=== PATIENT | female | born 1950 | race Two or more races ===

== ENCOUNTER → 2022-11-09 | Outpatient (CLI) | payer OTHER ==
[2022-11-09 08:35] LABS: Basophils # (auto) 0 10 ^3/uL (0-0.2); Basophils % (auto) 0.6 % (0.0-2.0); Eosinophils # (auto) 0.2 10 ^3/uL (0-0.8); Eosinophils % (auto) 3.3 % (0.0-7.0); Hematocrit 39.3 % (36.0-46.0); Hemoglobin 12.9 g/dL (12.2-16.2); Lymphocytes # (auto) 1.8 10 ^3/uL (0.4-5.4); Lymphocytes % (auto) 26.2 % (10.0-50.0); Mean Corpuscular Hemoglobin 29.1 pg (28.0-32.0); Mean Corpuscular Hgb Conc. 32.8 g/dL (32.0-36.0); Mean Corpuscular Volume 88.8 fL (80.0-100.0); Monocytes # (auto) 0.6 10 ^3/uL (0-1.3); Monocytes % (auto) 8.1 % (0.0-12.0); Neutrophils # (auto) 4.3 10 ^3/uL (1.6-8.6); Neutrophils % (auto) 61.8 % (37.0-80.0); Red Blood Cells 4.43 10^6/uL (4.0-5.20); Red Cell Distribution Width 13.5 % (11.8-14.3); White Blood Cell 6.9 10^3/uL (4.4-10.8)
[2022-11-09 09:31] LABS: Albumin 3.6 g/dL (3.4-5.0); BUN/Creatinine Ratio 17.7; Bilirubin, Total 0.3 mg/dL (0.2-1.0); Calcium 8.8 mg/dL (8.5-10.1); Total Protein 7.3 g/dL (6.4-8.2); Urine Bacteria NONE SEEN /hpf (None Seen); Urine Blood Negative /uL (Negative); Urine Specific Gravity 1.019 (1.001-1.035); Urine WBC 221 /hpf (0 - 5)
== END | disposition home or self-care (01) ==
LOC: LAB 08:20
PROVIDERS: ATTEND Student in an Organized Health Care Education/Training Program
DX: I10 Essential (primary) hypertension (principal); E11.9 Type 2 diabetes mellitus without complications
CPT/HCPCS: 36415; 80053; 80061; 81001; 83036; 85025

== ENCOUNTER → 2023-01-31 | Outpatient (CLI) | payer OTHER ==
[2023-01-31 09:29] LABS: Urine Bacteria FEW /hpf (None Seen); Urine Blood Negative /uL (Negative); Urine Mucus FEW (None Seen); Urine WBC 16 /hpf (0 - 5)
[2023-01-31 09:35] LABS: Basophils # (auto) 0 10 ^3/uL (0-0.2); Basophils % (auto) 0.6 % (0.0-2.0); Eosinophils # (auto) 0.2 10 ^3/uL (0-0.8); Eosinophils % (auto) 2.6 % (0.0-7.0); Hematocrit 38.8 % (36.0-46.0); Hemoglobin 13.2 g/dL (12.2-16.2); Lymphocytes # (auto) 1.9 10 ^3/uL (0.4-5.4); Lymphocytes % (auto) 23.3 % (10.0-50.0); Mean Corpuscular Hemoglobin 29.6 pg (28.0-32.0); Mean Corpuscular Hgb Conc. 33.9 g/dL (32.0-36.0); Mean Corpuscular Volume 87.2 fL (80.0-100.0); Monocytes # (auto) 0.5 10 ^3/uL (0-1.3); Monocytes % (auto) 6.4 % (0.0-12.0); Neutrophils # (auto) 5.5 10 ^3/uL (1.6-8.6); Neutrophils % (auto) 67.1 % (37.0-80.0); Red Blood Cells 4.45 10^6/uL (4.0-5.20); Red Cell Distribution Width 13.1 % (11.8-14.3); White Blood Cell 8.2 10^3/uL (4.4-10.8)
[2023-01-31 10:06] LABS: Potassium 4.2 mmol/L (3.5-5.1)
[2023-01-31 10:12] LABS: Calcium 8.9 mg/dL (8.5-10.1)
== END | disposition home or self-care (01) ==
LOC: LAB 08:39
PROVIDERS: ATTEND Student in an Organized Health Care Education/Training Program
DX: I10 Essential (primary) hypertension (principal); E11.9 Type 2 diabetes mellitus without complications
CPT/HCPCS: 36415; 80048; 81001; 83036; 85025

== ENCOUNTER → 2023-05-14 | Outpatient (CLI) | payer OTHER ==
[2023-05-14 08:22] LABS: Basophils # (auto) 0.1 10 ^3/uL (0-0.2); Basophils % (auto) 0.7 % (0.0-2.0); Eosinophils # (auto) 0.2 10 ^3/uL (0-0.8); Eosinophils % (auto) 2.4 % (0.0-7.0); Hematocrit 42.9 % (36.0-46.0); Hemoglobin 14.1 g/dL (12.2-16.2); Lymphocytes # (auto) 1.6 10 ^3/uL (0.4-5.4); Mean Corpuscular Hemoglobin 28.9 pg (28.0-32.0); Mean Corpuscular Hgb Conc. 32.8 g/dL (32.0-36.0); Mean Corpuscular Volume 88.3 fL (80.0-100.0); Monocytes # (auto) 0.7 10 ^3/uL (0-1.3); Monocytes % (auto) 8.3 % (0.0-12.0); Neutrophils # (auto) 5.4 10 ^3/uL (1.6-8.6); Neutrophils % (auto) 68.6 % (37.0-80.0); Red Blood Cells 4.86 10^6/uL (4.0-5.20); Red Cell Distribution Width 13.6 % (11.8-14.3); White Blood Cell 7.8 10^3/uL (4.4-10.8)
[2023-05-14 08:33] LABS: Urine Bacteria NONE SEEN /hpf (None Seen); Urine Blood Negative /uL (Negative); Urine Clarity Clear (Clear); Urine Color Yellow (Yellow); Urine Protein, UAD Negative (Negative); Urine Specific Gravity 1.008 (1.001-1.035); Urine Urobilinogen Normal (Negative); Urine WBC 3 /hpf (0 - 5)
[2023-05-14 09:05] LABS: Albumin 3.7 g/dL (3.4-5.0); Calcium 9.3 mg/dL (8.5-10.1); Potassium 4.1 mmol/L (3.5-5.1)
[2023-05-14 09:08] LABS: BUN/Creatinine Ratio 7.6 (10.0-20.0); Bilirubin, Total 0.4 mg/dL (0.2-1.0); Total Protein 8.1 g/dL (6.4-8.2)
== END | disposition home or self-care (01) ==
LOC: LAB 08:05
PROVIDERS: ATTEND Student in an Organized Health Care Education/Training Program
DX: E11.9 Type 2 diabetes mellitus without complications (principal); I10 Essential (primary) hypertension
CPT/HCPCS: 36415; 80053; 81001; 83036; 85025

== ENCOUNTER → 2023-08-06 | Outpatient (CLI) | payer OTHER ==
[2023-08-06 08:33] LABS: Basophils # (auto) 0.1 10 ^3/uL (0-0.2); Eosinophils # (auto) 0.2 10 ^3/uL (0-0.8); Eosinophils % (auto) 2.9 % (0.0-7.0); Hematocrit 38.8 % (36.0-46.0); Hemoglobin 12.9 g/dL (12.2-16.2); Lymphocytes # (auto) 1.7 10 ^3/uL (0.4-5.4); Lymphocytes % (auto) 23.5 % (10.0-50.0); Mean Corpuscular Hemoglobin 29.1 pg (28.0-32.0); Mean Corpuscular Hgb Conc. 33.3 g/dL (32.0-36.0); Mean Corpuscular Volume 87.6 fL (80.0-100.0); Monocytes # (auto) 0.5 10 ^3/uL (0-1.3); Monocytes % (auto) 6.2 % (0.0-12.0); Neutrophils # (auto) 4.9 10 ^3/uL (1.6-8.6); Neutrophils % (auto) 66.4 % (37.0-80.0); Red Blood Cells 4.43 10^6/uL (4.0-5.20); Red Cell Distribution Width 13.4 % (11.8-14.3); White Blood Cell 7.3 10^3/uL (4.4-10.8)
[2023-08-06 09:19] LABS: Alanine Aminotransferase 83 U/L (7-40); Albumin 4.3 g/dL (3.2-4.8); Alkaline Phosphatase 61 U/L (46-116); Anion Gap 5 (5-15); Aspartate Aminotransferase 73 U/L (13-40); BUN/Creatinine Ratio 7.6 (10.0-20.0); Bilirubin, Total 0.3 mg/dL (0.2-1.0); Blood Urea Nitrogen 5 mg/dL (9-23); Calcium 9.2 mg/dL (8.5-10.1); Carbon Dioxide 30 mmol/L (20-30); Chloride 93 mmol/L (98-107); Cholesterol 117 mg/dL (< 200); Glucose 140 mg/dL (74-106); HDL Cholesterol 32 mg/dL (40-59); LDL Cholesterol 70 mg/dL (< 100); Potassium 4.4 mmol/L (3.5-5.1); Sodium 128 mmol/L (136-145); Triglycerides 149 mg/dL (< 150)
[2023-08-07 10:07] LABS: Urine Blood Negative /uL (Negative); Urine Clarity Clear (Clear); Urine Color Colorless (Yellow); Urine Protein, UAD Negative (Negative); Urine Specific Gravity 1.007 (1.001-1.035); Urine Urobilinogen Normal (Negative)
== END | disposition home or self-care (01) ==
LOC: LAB 08:17
DX: I10 Essential (primary) hypertension (principal); E11.9 Type 2 diabetes mellitus without complications; E78.5 Hyperlipidemia, unspecified
CPT/HCPCS: 36415; 80053; 80061; 81003; 82306; 83036; 84443; 85025

== ENCOUNTER → 2024-01-29 | Outpatient (CLI) | payer OTHER ==
[2024-01-29 09:31] LABS: Basophils # (auto) 0.1 10 ^3/uL (0-0.2); Basophils % (auto) 0.6 % (0.0-2.0); Eosinophils # (auto) 0.2 10 ^3/uL (0-0.8); Eosinophils % (auto) 2.4 % (0.0-7.0); Hematocrit 41.3 % (36.0-46.0); Hemoglobin 13.7 g/dL (12.2-16.2); Lymphocytes # (auto) 1.7 10 ^3/uL (0.4-5.4); Lymphocytes % (auto) 17.5 % (10.0-50.0); Mean Corpuscular Hemoglobin 29.1 pg (28.0-32.0); Mean Corpuscular Hgb Conc. 33.1 g/dL (32.0-36.0); Mean Corpuscular Volume 87.8 fL (80.0-100.0); Monocytes # (auto) 0.7 10 ^3/uL (0-1.3); Neutrophils # (auto) 7.2 10 ^3/uL (1.6-8.6); Neutrophils % (auto) 72.5 % (37.0-80.0); Red Blood Cells 4.71 10^6/uL (4.0-5.20); Red Cell Distribution Width 14.2 % (11.8-14.3); White Blood Cell 9.9 10^3/uL (4.4-10.8)
[2024-01-29 09:38] LABS: Urine Bacteria None Seen /hpf (None Seen)
[2024-01-29 09:44] LABS: Urine Blood Negative /uL (Negative); Urine Clarity Clear (Clear); Urine Color Light-Yellow (Yellow); Urine Protein, UAD Negative (Negative); Urine Specific Gravity 1.009 (1.001-1.035); Urine Urobilinogen Normal (Negative); Urine WBC 1 /hpf (0 - 5); Urine pH 7.5 (5.0-9.0)
[2024-01-29 10:09] LABS: Creatinine, Urine 38.87 mg/dL (30.0-125.0)
[2024-01-29 10:11] LABS: Alanine Aminotransferase 71 U/L (7-40); Albumin 4.6 g/dL (3.2-4.8); Alkaline Phosphatase 67 U/L (46-116); Anion Gap 5 (5-15); Aspartate Aminotransferase 117 U/L (13-40); BUN/Creatinine Ratio 9.5 (10.0-20.0); Blood Urea Nitrogen 6 mg/dL (9-23); Calcium 9.7 mg/dL (8.5-10.1); Carbon Dioxide 31 mmol/L (20-30); Chloride 96 mmol/L (98-107); Glucose 97 mg/dL (74-106); LDL Cholesterol 95 mg/dL (< 100); Micro Albumin < 3.0 mg/L (<30.0); Potassium 4.5 mmol/L (3.5-5.1); Sodium 132 mmol/L (136-145); Triglycerides 141 mg/dL (< 150)
[2024-01-29 10:12] LABS: Bilirubin, Total 0.4 mg/dL (0.2-1.0); Cholesterol 148 mg/dL (< 200); HDL Cholesterol 39 mg/dL (40-59); Total Protein 7.9 g/dL (5.7-8.2)
== END | disposition home or self-care (01) ==
LOC: LAB 09:17
PROVIDERS: ATTEND Student in an Organized Health Care Education/Training Program
DX: Z12.11 Encounter for screening for malignant neoplasm of colon (principal); I10 Essential (primary) hypertension; E11.9 Type 2 diabetes mellitus without complications
CPT/HCPCS: 36415; 80053; 80061; 81001; 82043; 82570; 83036; 85025

== ENCOUNTER → 2024-01-30 | Outpatient (CLI) | payer OTHER | END | disposition home or self-care (01) | LOC: LAB 13:43 | PROVIDERS: ATTEND Student in an Organized Health Care Education/Training Program | DX: Z12.11 Encounter for screening for malignant neoplasm of colon (principal); I10 Essential (primary) hypertension; E11.9 Type 2 diabetes mellitus without complications | CPT/HCPCS: 82274 ==

== ENCOUNTER → 2024-08-01 | Outpatient (CLI) | payer OTHER ==
[2024-08-01 08:42] LABS: Basophils # (auto) 0 10 ^3/uL (0-0.2); Basophils % (auto) 0.6 % (0.0-2.0); Eosinophils # (auto) 0.2 10 ^3/uL (0-0.8); Eosinophils % (auto) 2.3 % (0.0-7.0); Hematocrit 41.6 % (36.0-46.0); Hemoglobin 13.7 g/dL (12.2-16.2); Lymphocytes # (auto) 1.8 10 ^3/uL (0.4-5.4); Lymphocytes % (auto) 22.1 % (10.0-50.0); Mean Corpuscular Hemoglobin 29.4 pg (28.0-32.0); Mean Corpuscular Hgb Conc. 32.8 g/dL (32.0-36.0); Mean Corpuscular Volume 89.4 fL (80.0-100.0); Monocytes # (auto) 0.5 10 ^3/uL (0-1.3); Monocytes % (auto) 6.5 % (0.0-12.0); Neutrophils # (auto) 5.4 10 ^3/uL (1.6-8.6); Neutrophils % (auto) 68.5 % (37.0-80.0); Nucleated Red Blood Cells % 0.2 %; Platelet Count (auto) 339 10^3/uL (140-450); Red Blood Cells 4.65 10^6/uL (4.0-5.20); Red Cell Distribution Width 13.9 % (11.8-14.3); White Blood Cell 7.9 10^3/uL (4.4-10.8)
[2024-08-01 08:46] LABS: Alanine Aminotransferase 77 U/L (7-40); Albumin 4.3 g/dL (3.2-4.8); Alkaline Phosphatase 72 U/L (46-116); Anion Gap 7 (5-15); Aspartate Aminotransferase 114 U/L (13-40); BUN/Creatinine Ratio 9.1 (10.0-20.0); Bilirubin, Total 0.4 mg/dL (0.2-1.0); Blood Urea Nitrogen 6 mg/dL (9-23); Calcium 9.9 mg/dL (8.7-10.4); Carbon Dioxide 30 mmol/L (20-31); Chloride 97 mmol/L (98-107); Cholesterol 128 mg/dL (< 200); Glucose 175 mg/dL (74-106); HDL Cholesterol 31 mg/dL (40-59); LDL Cholesterol 81 mg/dL (< 100); Potassium 4.5 mmol/L (3.5-5.1); Sodium 134 mmol/L (136-145); Total Protein 7.7 g/dL (5.7-8.2); Triglycerides 159 mg/dL (< 150)
[2024-08-01 09:08] LABS: Urine Bacteria MOD /hpf (None Seen); Urine Blood TRACE /uL (Negative); Urine Clarity Turbid (Clear); Urine Color Light-Orange (Yellow); Urine Hyaline Cast FEW /lpf (0 - 2); Urine Mucus FEW (None Seen); Urine Protein, UAD TRACE (Negative); Urine Specific Gravity 1.014 (1.001-1.035); Urine Urobilinogen Normal (Negative); Urine WBC 205 /hpf (0 - 5)
== END | disposition home or self-care (01) ==
LOC: LAB 07:56
PROVIDERS: ATTEND Student in an Organized Health Care Education/Training Program
DX: I10 Essential (primary) hypertension (principal); E11.9 Type 2 diabetes mellitus without complications
CPT/HCPCS: 36415; 80053; 80061; 81001; 83036; 84443; 85025

== ENCOUNTER → 2024-12-02 | Outpatient (CLI) | payer OTHER ==
[2024-12-02 10:43] LABS: Basophils # (auto) 0.1 10 ^3/uL (0-0.2); Basophils % (auto) 1.9 % (0.0-2.0); Eosinophils # (auto) 0.2 10 ^3/uL (0-0.8); Eosinophils % (auto) 2.2 % (0.0-7.0); Hematocrit 41.2 % (36.0-46.0); Hemoglobin 13.4 g/dL (12.2-16.2); Lymphocytes # (auto) 1.7 10 ^3/uL (0.4-5.4); Lymphocytes % (auto) 22.3 % (10.0-50.0); Mean Corpuscular Hemoglobin 28.5 pg (28.0-32.0); Mean Corpuscular Hgb Conc. 32.6 g/dL (32.0-36.0); Mean Corpuscular Volume 87.6 fL (80.0-100.0); Monocytes # (auto) 0.6 10 ^3/uL (0-1.3); Monocytes % (auto) 7.1 % (0.0-12.0); Neutrophils # (auto) 5.2 10 ^3/uL (1.6-8.6); Neutrophils % (auto) 66.5 % (37.0-80.0); Platelet Count (auto) 361 10^3/uL (140-450); White Blood Cell 7.8 10^3/uL (4.4-10.8)
[2024-12-02 11:03] LABS: Creatinine, Urine 33.99 mg/dL (30.0-125.0)
[2024-12-02 11:07] LABS: Albumin 4.6 g/dL (3.2-4.8); Alkaline Phosphatase 72 U/L (46-116); Anion Gap 7 (5-15); BUN/Creatinine Ratio 9.9 (10.0-20.0); Bilirubin, Total 0.4 mg/dL (0.2-1.0); Carbon Dioxide 30 mmol/L (20-31); Potassium 4.7 mmol/L (3.5-5.1); Total Protein 7.8 g/dL (5.7-8.2)
[2024-12-02 11:17] LABS: Alanine Aminotransferase 82 U/L (7-40); Aspartate Aminotransferase 133 U/L (13-40); Blood Urea Nitrogen 7 mg/dL (9-23); Chloride 94 mmol/L (98-107); Glucose 129 mg/dL (74-106); Sodium 131 mmol/L (136-145)
[2024-12-02 11:22] LABS: Micro Albumin < 3.0 mg/L (<30.0)
[2024-12-02 11:50] LABS: Urine Bacteria MANY /hpf (None Seen); Urine Blood Negative /uL (Negative); Urine Clarity Turbid (Clear); Urine Color Colorless (Yellow); Urine Protein, UAD Negative (Negative); Urine Specific Gravity 1.006 (1.001-1.035); Urine Squamous Epithelial Cell FEW /hpf (<5); Urine Urobilinogen Normal (Negative); Urine WBC 52 /HPF (0-5)
[2024-12-02 12:18] LABS: LDL Cholesterol 90 mg/dL (< 100)
[2024-12-02 12:19] LABS: Cholesterol 142 mg/dL (< 200); Triglycerides 152 mg/dL (< 150)
[2024-12-02 12:43] LABS: HDL Cholesterol 32 mg/dL (40-59)
== END | disposition home or self-care (01) ==
LOC: LAB 10:05
PROVIDERS: ATTEND Student in an Organized Health Care Education/Training Program
DX: Z12.11 Encounter for screening for malignant neoplasm of colon (principal); I10 Essential (primary) hypertension; E11.9 Type 2 diabetes mellitus without complications
CPT/HCPCS: 36415; 80053; 80061; 81001; 82043; 82570; 83036; 84443; 85025

== ENCOUNTER 2025-03-12 08:05 | Outpatient (CLI) | payer OTHER ==
[2025-03-12 08:26] LABS: Basophils # (auto) 0 10 ^3/uL (0-0.2); Basophils % (auto) 0.6 % (0.0-2.0); Eosinophils # (auto) 0.2 10 ^3/uL (0-0.8); Eosinophils % (auto) 2.5 % (0.0-7.0); Hematocrit 40.2 % (36.0-46.0); Hemoglobin 13.3 g/dL (12.2-16.2); Lymphocytes # (auto) 1.5 10 ^3/uL (0.4-5.4); Lymphocytes % (auto) 19.9 % (10.0-50.0); Mean Corpuscular Hemoglobin 28.4 pg (28.0-32.0); Mean Corpuscular Volume 85.9 fL (80.0-100.0); Monocytes # (auto) 0.6 10 ^3/uL (0-1.3); Monocytes % (auto) 7.2 % (0.0-12.0); Neutrophils # (auto) 5.4 10 ^3/uL (1.6-8.6); Neutrophils % (auto) 69.8 % (37.0-80.0); Nucleated Red Blood Cells % 0.1 %; Platelet Count (auto) 328 10^3/uL (140-450); Red Blood Cells 4.68 10^6/uL (4.0-5.20); Red Cell Distribution Width 13.6 % (11.8-14.3); White Blood Cell 7.7 10^3/uL (4.4-10.8)
[2025-03-12 11:16] LABS: Anion Gap 9 (5-15); Calcium 9.4 mg/dL (8.7-10.4); Carbon Dioxide 29 mmol/L (20-31); Potassium 4.1 mmol/L (3.5-5.1)
[2025-03-12 11:22] LABS: BUN/Creatinine Ratio 7.6 (10.0-20.0)
[2025-03-12 11:32] LABS: Blood Urea Nitrogen 5 mg/dL (9-23); Chloride 93 mmol/L (98-107); Glucose 147 mg/dL (74-106); Sodium 131 mmol/L (136-145)
[2025-03-12 15:05] LABS: Creatinine, Urine 19.91 mg/dL (30.0-125.0)
[2025-03-12 15:09] LABS: Micro Albumin < 3.0 mg/L (<30.0)
[2025-03-12 15:56] LABS: LDL Cholesterol 89 mg/dL (< 100)
[2025-03-12 15:58] LABS: Cholesterol 140 mg/dL (< 200)
[2025-03-12 16:00] LABS: HDL Cholesterol 33 mg/dL (40-59); Triglycerides 166 mg/dL (< 150)
== END 2025-03-12 17:00 | disposition home or self-care (01) ==
LOC: LAB 08:05
PROVIDERS: ATTEND Student in an Organized Health Care Education/Training Program
DX: I10 Essential (primary) hypertension (principal); E11.9 Type 2 diabetes mellitus without complications
CPT/HCPCS: 36415; 80048; 80061; 82043; 82570; 83036; 85025

== ENCOUNTER 2025-06-08 19:48 | Inpatient (IN) | payer MEDICAID, OTHER ==
[~2025-06-08] VITALS: Ht 165.1 cm; Wt 69.9 kg
[2025-06-08 20:00] VITALS: PULSE 92
--- NOTE | 2025-06-08 20:14 | ECG ---
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
[2025-06-08 20:30] LABS: Hematocrit 39.3 % (36.0-46.0); Hemoglobin 13.3 g/dL (12.2-16.2); Mean Corpuscular Hemoglobin 28.8 pg (28.0-32.0); Mean Corpuscular Volume 85.3 fL (80.0-100.0); Nucleated Red Blood Cells % 0.0 %
[2025-06-08 20:44] LABS: Alanine Aminotransferase 22 U/L (7-40); Albumin 4.7 g/dL (3.2-4.8); Alkaline Phosphatase 109 U/L (46-116); Anion Gap 11 (5-15); Calcium 9.4 mg/dL (8.7-10.4); Carbon Dioxide 25 mmol/L (20-31); Lipase 36 U/L (12-53); Potassium 4.1 mmol/L (3.5-5.1); Total Protein 7.9 g/dL (5.7-8.2)
[2025-06-08 20:45] LABS: Bilirubin, Total 0.4 mg/dL (0.2-1.0)
[2025-06-08 20:47] LABS: BUN/Creatinine Ratio 7.8 (10.0-20.0); Blood Urea Nitrogen < 5 mg/dL (9-23); Chloride 84 mmol/L (98-107); Glucose 204 mg/dL (74-106); Sodium 120 mmol/L (136-145)
--- NOTE | 2025-06-08 20:56 | DVH ---
CLINICAL HISTORY: HTN, QUESADA TECHNIQUE: Helical scanning was performed of the head from the skull base to the vertex. Multiplanar reconstructions were performed. This exam was performed according to our departmental dose optimizat ion program. Up-to-date CT equipment and radiation dose reduction techniques are utilized as appropri ate. CTDI 49.8 DLP 896.3 COMPARISON: BRAIN HEAD WO CONTRAST on DOS: 03/31/22, HEAD WITHOUT CONTRAST on DOS: 10/26/21 FINDINGS: Evaluation is limited due to image degradation secondary to patient motion. There is no evidence for acute intracranial hemorrhage, acute ischemic changes, mass, mass effect, or extra-axial fluid collection. There is no hydrocephalus or midline shift. There is no effacement of the cerebral sulci and basal subarachnoid cisterns. The ward-white matter differentiation is well evelyn ntained. The imaged paranasal sinuses are clear. IMPRESSION: NO ACUTE INTRACRANIAL ABNORMALITY SEEN.
--- NOTE | 2025-06-08 21:18 | ED.PDOC ---
HPI Comments 74 y/o F is brought in by spouse for chief complaint of high blood pressure, with nonspecific abdominal pain, shortness a breath, and dizziness. Nonspecific headache. Endorsement of 4x day history of symptoms. Blood pressure home, today, was 205 systolic. No previous history symptoms in the past. Reports taking her high blood pressure medication in the morning at around 9:00 a.m. Denies any chest pain, palpitations, speech changes, or further associated symptoms. HPI: Poor Historian. 74-year-old female brought in by her for evaluation of four day history of elevated blood pressure with the associated headache chest pain shortness of breath and abdominal pain. Denies any nausea or vomiting or diarrhea. Patient states compliance with her medications. Blood pressure at home was 205 systolic, earlier, today. Past Medical History: DM, HLD, HTN, dextrocardia Past Surgical History: hysterectomy Vitals: Temperature 97.5 F, pulse rate of 85, respiratory rate of 18, pulse oxygen 98% room air, and blood pressure of 224/100 REVIEW OF SYSTEMS: CONSTITUTIONAL: Denies acute: fever, diaphoresis, chills, HEAD: Denies acute: photophobia Eyes: Denies acute: Double vision, vision loss, eye pain, eye discharge. EARS: Denies acute: tinnitus, hearing loss, ear discharge, ear pain, THROAT: Denies acute: sore throat, swelling, difficulty swallowing , pain with swallowing, change in voice. NECK: Denies acute: neck pain, neck swelling, stiff neck. HEART: Denies acute : palpitations, LUNGS: Denies acute: wheezing, cough, hemoptysis ABDOMEN: Denies acute: Nausea, Vomiting, diarrhea, melena , hematemesis, hematochezia SKIN: Denies acute: rash, redness, lesions, itchiness. EXTREMITIES: Denies acute: calf pain, numbness, tingling, weakness, denies pain in extremity. Denies acute: Low back pain. Neuro: Denies acute: focal neurological deficit, motor or sensory focal neurological deficit, tremors, seizure like activity, confusion, dizziness, change in mental status, loss of bowel or bladder function, cauda equina like symptoms. : Denies acute: dysuria, hematuria, flank pain, increase in urinary frequency. PSYCH: Denies acute: hallucination, suicidal ideation, homicidal ideation. FEMALE: Denies acute: abnormal vaginal bleeding, foul odor, unusual discharge. PHYSICAL EXAM: General: ----lfyl-hv-qfrjkxci----acute distress, awake and alert. Head: normocephalic, atraumatic. Neck: supple, trachea is midline, no swelling. Throat: Normal phonation. Eyes:, no erythema, no purulent discharge, no proptosis, no icterus. Heart: regular rate, regular rhythm, no significant murmur appreciated. Lungs: no apparent respiratory distress, Able to speak in full sentences. No wheezing, no rhonchi, no crackles. No stridors Clear to auscultation bilaterally. Abdomen: non tender to palpation, non distended, soft, no guarding, no rebound, + bowel sounds. Neuro: Awake, Alert, oriented to name, self, situation, follows commands GCS=15. Speech is normal. Skin: no petechia, no purpura, no cyanosis, non-pale, not jaundice. Lower extremities: --no - Pitting edema no deformity, no focal swelling, no calf TTP. Makes eye contact. moves all four extremities. Face: no apparent facial droop. ED COURSE: DISCLAIMER: This medical document was created using an electronic medical record system with voice recognition software and computerized dictation system. Although this document has been carefully reviewed, there might still be some phonetic and typographical errors. Occasional wrong-word or "sound-alike" substitutions may have occurred due to the inherent limitations of voice recognition software. These areas are purely typographical due to imperfections of the software programs and do not reflect any compromise in the patient's medical care. Please read the chart carefully and recognize, using context, where these substitutions have occurred. Chief Complaint: High Blood Pressure Time Seen by MD: 20:01 Reviewed Notes: Allergies Allergies: Coded Allergies: NO KNOWN ALLERGIES (Unverified , 06/08/25) Information Source: Patient, Spouse Mode of Arrival: Wheelchair EKG EKG : Pulse Rate (adult): 79 [place]: Normal Cardiac Rhythm: NSR Block: None Hypertrophy: None ST: Normal Was a procedure done? Was a procedure done?: No CP Differential Dx Differential Diagnosis: N/A Differential Diagnosis: Other (DDX include renal disease, thyroid disease, electrolyte abnormality, increased salt intake, medications non-compliance, undiagnosed HTN, Hypertensive crisis, hypertensive urgency., drug toxicity.) Differential Diagnosis: Other (Ddx include but not limitied to gastritis, musculoskeletal pain, radiculopathy, atypical chest pain, dissection, aneurysm, ACS, unstable angina, hiatal hernia, GERD, anxiety, costochondritis, PE, pneumothroax, neoplasm, cardiac ischemia, drug abuse, anemia.) Comment DDX include Diverticulitis, colitis, gastroenteritis, acute abdomen, SBO, enteritis, constipation, volvulus, appendicitis, Gallbladder disease, choledocolithiasis, ascending cholangitis, pancreatitis, intraAbdominal mass/neoplasm, hepatitis, UTI, pylonephritis, kidney stone, aneurysm, dissection, Inflammatory bowel disease, gastroparesis, ischemic bowel, X-Ray, Labs, Meds, VS Vital Signs Date Time Temp Pulse Resp B/P (MAP) Pulse Ox O2 Delivery O2 Flow Rate FiO2 06/08/25 21:27 79 06/08/25 19:58 79 06/08/25 19:55 97.5 85 18 224/100 98 97.5 Lab Test 06/08/25 21:27 06/08/25 20:10 Range/Units Troponin I High Sensitivity 5 4 </=34 ng/L White Blood Count 10.5 4.4-10.8 10^3/uL Red Blood Count 4.61 4.0-5.20 10^6/uL Hemoglobin 13.3 12.2-16.2 g/dL Hematocrit 39.3 36.0-46.0 % Mean Corpuscular Volume 85.3 80.0-100.0 fL Mean Corpuscular Hemoglobin 28.8 28.0-32.0 pg Mean Corpuscular Hemoglobin Concent 33.7 32.0-36.0 g/dL Red Cell Distribution Width 13.6 11.8-14.3 % Platelet Count 418 140-450 10^3/uL Mean Platelet Volume 6.5 L 6.9-10.8 fL Neutrophils (%) (Auto) 75.0 37.0-80.0 % Lymphocytes (%) (Auto) 15.0 10.0-50.0 % Monocytes (%) (Auto) 7.8 0.0-12.0 % Eosinophils (%) (Auto) 1.8 0.0-7.0 % Basophils (%) (Auto) 0.4 0.0-2.0 % Neutrophils # (Auto) 7.9 1.6-8.6 10 ^3/uL Lymphocytes # (Auto) 1.6 0.4-5.4 10 ^3/uL Monocytes # (Auto) 0.8 0-1.3 10 ^3/uL Eosinophils # (Auto) 0.2 0-0.8 10 ^3/uL Basophils # (Auto) 0 0-0.2 10 ^3/uL Nucleated Red Blood Cells 0.0 % Sodium Level 120 L 136-145 mmol/L Potassium Level 4.1 3.5-5.1 mmol/L Chloride Level 84 L 98-107 mmol/L Carbon Dioxide Level 25 20-31 mmol/L Anion Gap 11 5-15 Blood Urea Nitrogen < 5 L 9-23 mg/dL Creatinine 0.64 0.550-1.02 mg/dL Glomerular Filtration Rate Calc 94 >90 mL/min BUN/Creatinine Ratio 7.8 L 10.0-20.0 Serum Glucose 204 H 74-106 mg/dL Lactic Acid Level 4.0 *H 0.4-2.0 mmol/L Calcium Level 9.4 8.7-10.4 mg/dL Total Bilirubin 0.4 0.2-1.0 mg/dL Aspartate Amino Transferase (AST) 32 13-40 U/L Alanine Aminotransferase (ALT) 22 7-40 U/L Alkaline Phosphatase 109 46-116 U/L B-Type Natriuretic Peptide 159.67 0-100 pg/mL Total Protein 7.9 5.7-8.2 g/dL Albumin 4.7 3.2-4.8 g/dL Lipase 36 12-53 U/L Current Medications Medications (Trade) Dose Ordered Sig/[place] Route Start Time Stop Time Status Last Admin Labetalol HCl (Labetalol HCl) 5 mg ONCE ONCE IV 06/08/25 20:15 06/08/25 20:16 DC 06/09/25 01:10 Sodium Chloride 500 ml @ 500 mls/hr Q1H ONCE IV 06/08/25 21:30 06/08/25 22:29 DC 06/09/25 03:[address] [address] Ph: [phone] DIAGNOSTIC IMAGING Diagnostic Imaging Report : [id number] Signed PATIENT: FABIOLA BRAVO ACCT: [id number] UNIT: [id number] : 1950 LOC: ER ROOM / BED: / AGE / SEX: 74 / F ADM STATUS: REG ER SERVICE 02 ORDERING PHYSICIAN: GERTRUDIS SALCEDO DO PROCEDURE(s): HWOCT - HEAD WITHOUT CONTRAST REASON: HTN, QUESADA ORDER NUMBER(s): [id number], ACCESSION NUMBER(s): [id number] CLINICAL HISTORY: HTN, QUESADA TECHNIQUE: Helical scanning was performed of the head from the skull base to the vertex. Multiplanar reconstructions were performed. This exam was performed according to our departmental dose optimization program. Up-to-date CT equipment and radiation dose reduction techniques are utilized as appropriate. CTDI 49.8 DLP 896.3 COMPARISON: BRAIN HEAD WO CONTRAST on DOS: 03/31/22, HEAD WITHOUT CONTRAST on DOS: 10/26/21 FINDINGS: Evaluation is limited due to image degradation secondary to patient motion. There is no evidence for acute intracranial hemorrhage, acute ischemic changes, mass, mass effect, or extra-axial fluid collection. There is no hydrocephalus or midline shift. There is no effacement of the cerebral sulci and basal subarachnoid cisterns. The ward-white matter differentiation is well maintained. The imaged paranasal sinuses are clear. IMPRESSION: NO ACUTE INTRACRANIAL ABNORMALITY SEEN. ATED BY: KAREEM LEONG MD DICTATED DATE/TIME: 06/08/252053 SIGNED BY: KAREEM LEONG MD SIGNED DATE/TIME: 06/08/252053 CC: [place] [id number] Ph: [phone] DIAGNOSTIC IMAGING Diagnostic Imaging Report : [id number] Signed PATIENT: FABIOLA BRAVO ACCT: [id number] UNIT: [id number] : 1950 LOC: ER ROOM / BED: / AGE / SEX: 74 / F ADM STATUS: REG ER SERVICE 02 ORDERING PHYSICIAN: GERTRUDIS SALCEDO DO PROCEDURE(s): HWOCT - HEAD WITHOUT CONTRAST REASON: HTN, QUESADA ORDER NUMBER(s): [id number], ACCESSION NUMBER(s): [id number] CLINICAL HISTORY: HTN, QUESADA TECHNIQUE: Helical scanning was performed of the head from the skull base to the vertex. Multiplanar reconstructions were performed. This exam was performed according to our departmental dose optimization program. Up-to-date CT equipment and radiation dose reduction techniques are utilized as appropriate. CTDI 49.8 DLP 896.3 COMPARISON: BRAIN HEAD WO CONTRAST on DOS: 03/31/22, HEAD WITHOUT CONTRAST on DOS: 10/26/21 FINDINGS: Evaluation is limited due to image degradation secondary to patient motion. There is no evidence for acute intracranial hemorrhage, acute ischemic changes, mass, mass effect, or extra-axial fluid collection. There is no hydrocephalus or midline shift. There is no effacement of the cerebral sulci and basal subarachnoid cisterns. The ward-white matter differentiation is well maintained. The imaged paranasal sinuses are clear. IMPRESSION: NO ACUTE INTRACRANIAL ABNORMALITY SEEN. ATED BY: KAREEM LEONG MD DICTATED DATE/TIME: 06/08/252053 SIGNED BY: KAREEM LEONG MD SIGNED DATE/TIME: 06/08/252053 CC: [place] [id number] Ph: [phone] DIAGNOSTIC IMAGING Diagnostic Imaging Report : [id number] Signed PATIENT: FABIOLA BRAVO ACCT: [id number] UNIT: [id number] : 1950 LOC: OVERFLOW ROOM / BED: [address] [place] [address] AGE / SEX: 74 / F ADM STATUS: ADM IN SERVICE 21 ORDERING PHYSICIAN: GERTRUDIS SALCEDO DO PROCEDURE(s): ABPL - CT AB PEL WO CON-NO ORAL OR IV REASON: ABDOMINAL PAIN ORDER NUMBER(s): [id number], ACCESSION NUMBER(s): [id number] CLINICAL HISTORY: ABDOMINAL PAIN TECHNIQUE: CT of the abdomen and pelvis was performed without IV contrast. This exam was performed according to our departmental dose optimization program. Up-to-date CT equipment and radiation dose reduction techniques are utilized as appropriate. CTDI 49.8 DLP 896.3 COMPARISON: [facility] on DOS: 03/31/22 FINDINGS: Please note that a machine error occurred. Therefore, the images are flipped on the study. Abdomen/Pelvis: The adrenal glands, kidneys, spleen, liver, gallbladder, and bladder are unremarkable. There are no specific uterine myometrial calcifications, possibly vascular. The abdominal aorta is normal in caliber with moderate atherosclerotic calcifications. There is no free intraperitoneal air or fluid. There is no enlarged abdominal pelvic lymph node. There is no bowel wall thickening or dilatation. The appendix is normal. Other: The imaged lower thorax demonstrates coronary artery calcifications and mild atelectatic changes at both lung bases. No acute osseous abnormality is evident. There is a mild late subacute or chronic L1 vertebral body body compression fracture. Impression: No acute noncontrast CT abnormality in the abdomen or pelvis. Mild leak subacute or chronic L1 vertebral body compression fracture. ATED BY: KAREEM LEONG MD DICTATED DATE/TIME: 06/08/252329 SIGNED BY: KAREEM LEONG MD SIGNED DATE/TIME: 06/08/252329 CC: Time of 1ST Reevaluation: 00:00 Reevaluation 1ST: Unchanged Patient Education/Counseling: Diagnosis, Treatment, Other (need for admissin ) Family Education/Counseling: Diagnosis, Treatment Comments MDM: patient presented with the above HPI.---hypertension evaluation/chest pain/abdominal pain---workup was initiated. patient was found with the above mentioned diagnosis. the following medications were ordered: please refer to order lists of meds and tests obtained by myself Dr. Salcedo. Patient ED course and VS have been stabilized. Patient has been reassessed in the ED and remained in a stable condition. Pertinent incidental findings were discussed with the patient and/or family. Patient/family voices understanding and is agreeable with plan. Patient has been observed in the ED adequate length of time to insure improvement/stability. Escalation of care considered: Consideration of escalation to observation or admission Possible UTI, patient was given Rocephin. Patient was given fluids, labetalol 5 mg IV for blood pressure control and sublingual nitroglycerin. Patient was ADMITTED to the medicine team for further evaluation and treatment of their presentation. All the reports of any imaging studies that were ordered by myself were reviewed by myself. Departure 1 Departure Time of Disposition: 21:16 Impression: Primary Impression: Hypertensive crisis Additional Impressions: Hyponatremia Chest pain Abnormal EKG UTI (urinary tract infection) Elevated lactic acid level Disposition: ADMITTED INPATIENT Admit to: Tele Condition: Guarded Discharged With: Self Critical Care Note Critical Care Time?: Yes (55 min-critical care time only) Heart Score Heart Score: Heart Score Response (Comments) Value History Moderate Suspicious [address]-Deviation 2 Age >65 2 Risk Factors >3 or Hx ASHD 2 Troponin Normal limit 0 Total 7 I personally scribed for GERTRUDIS SALCEDO DO ([email or web address]) on 06/08/25 at 21:27. Electronically submitted by Ruel Muro ([email or web address]). I personally scribed for GERTRUDIS SALCEDO DO ([email or web address]) on 06/08/25 at 21:31. Electronically submitted by Ruel Muro ([email or web address]). GERTRUDIS SALCEDO DO Jun 08, 2025 21:18
[2025-06-08 21:41] LABS: Lactic Acid w/Reflex 4.0 mmol/L (0.4-2.0)
[2025-06-08] MEDS ORDERED: NITROGLYCERIN 0.4 MG SL TAB SL PRN (23:15)
--- NOTE | 2025-06-08 23:22 | DVH ---
CHEST RADIOGRAPH Indication: cp/sob Technique: Single frontal view of the chest was obtained COMPARISON: None FINDINGS: Lines and Tubes: None Lungs: Mild diffuse increased prominence of the pulmonary vasculature. No evidence of focal consolida tion. Pleura: No effusion. No pneumothorax. Cardiomediastinal contours: Cardiomegaly. Bones: Unremarkable IMPRESSION: 1. Cardiomegaly with mild pulmonary vascular congestion.
--- NOTE | 2025-06-08 23:32 | DVH ---
CLINICAL HISTORY: ABDOMINAL PAIN TECHNIQUE: CT of the abdomen and pelvis was performed without IV contrast. This exam was performed ac cording to our departmental dose optimization program. Up-to-date CT equipment and radiation dose red uction techniques are utilized as appropriate. CTDI 49.8 DLP 896.3 COMPARISON: [facility] on DOS: 03/31/22 FINDINGS: Please note that a machine error occurred. Therefore, the images are flipped on the study. Abdomen/Pelvis: The adrenal glands, kidneys, spleen, liver, gallbladder, and bladder are unremarkable. There are no s pecific uterine myometrial calcifications, possibly vascular. The abdominal aorta is normal in caliber with moderate atherosclerotic calcifications. There is no free intraperitoneal air or fluid. There is no enlarged abdominal pelvic lymph node. There is no bowel wall thickening or dilatation. The appendix is normal. Other: The imaged lower thorax demonstrates coronary artery calcifications and mild atelectatic changes at [facility] lung bases. No acute osseous abnormality is evident. There is a mild late subacute or chronic L1 vertebral body body compression fracture. Impression: No acute noncontrast CT abnormality in the abdomen or pelvis. Mild leak subacute or chronic L1 vertebral body compression fracture.
[2025-06-09] MEDS ORDERED: DEXTROSE (50%) 50ML SYRG IV PRN ×2 (00:30→06:00)
--- NOTE | 2025-06-09 00:35 | DVHHPRES ---
History of Present Illness Resident Creating Document: BEHZAD BASSETT RESIDENT History of Present Illness 74-year-old female with past medical history of diabetes mellitus, hypertension, hyperlipidemia presented with complaints of increased blood pressure, abdominal pain, headache, shortness of breath and dizziness. Patient mentioned that for five days her blood pressure is in the higher range greater than 200s. Patient also started having shortness of breath, abdominal pain, headache for last five days. She also mentioned associated mild chest pain. Mentioned mild blurriness of vision. Denied any nausea, vomiting, diarrhea, constipation. On presenting to the ER, patient's blood pressure in 220s, was given labetalol. Patient will be admitted for further management for hypertensive emergency. Past medical history diabetes mellitus, hypertension, hyperlipidemia and dextrocardia Past surgical history Denied recent surgery Social history Denied smoking, alcohol, marijuana or other drug intake Family history Nonsignificant Medication history Metformin Hydrochlorothiazide Aspirin Losartan Simvastatin Omeprazole Escitalopram Trazodone Quetiapine Review of Systems Review of Systems As described in the HPI Allergies: Coded Allergies: NO KNOWN ALLERGIES (Unverified , 06/08/25) Medications Current Medications Medications Dose Ordered Sig/[place] Route Start Time Stop Time Status Last Admin Dose Admin Morphine Sulfate 2 mg Q30M PRN IV 06/08/25 23:15 Nitroglycerin 0.4 mg Q5MINP PRN SL 06/08/25 23:15 Exam Vital Signs Vital Signs Date Time Temp Pulse Resp B/P (MAP) Pulse Ox O2 Delivery O2 Flow Rate FiO2 06/09/25 00:13 210/103 (138) 06/08/25 21:27 79 06/08/25 19:55 97.5 18 98 97.5 Exam Examination General Appearance: Alert, Oriented X3, Cooperative, No acute distress HEENT: EOMI Respiratory: Clear to auscultation, Normal air movement Cardiovascular: Regular rate, Normal S1, Normal S2 Abdominal: Normal bowel sounds Extremities: No cyanosis, No edema, Normal pulses, No tenderness/swelling Skin: No rashes, No breakdown Neuro: Normal speech and tone Labs/Xrays Labs Test 06/08/25 23:19 06/08/25 20:10 Range/Units Lactic Acid Level 4.1 *H 0.4-2.0 mmol/L Troponin I High Sensitivity 4 </=34 ng/L White Blood Count 10.5 4.4-10.8 10^3/uL Red Blood Count 4.61 4.0-5.20 10^6/uL Hemoglobin 13.3 12.2-16.2 g/dL Hematocrit 39.3 36.0-46.0 % Mean Corpuscular Volume 85.3 80.0-100.0 fL Mean Corpuscular Hemoglobin 28.8 28.0-32.0 pg Mean Corpuscular Hemoglobin Concent 33.7 32.0-36.0 g/dL Red Cell Distribution Width 13.6 11.8-14.3 % Platelet Count 418 140-450 10^3/uL Mean Platelet Volume 6.5 L 6.9-10.8 fL Neutrophils (%) (Auto) 75.0 37.0-80.0 % Lymphocytes (%) (Auto) 15.0 10.0-50.0 % Monocytes (%) (Auto) 7.8 0.0-12.0 % Eosinophils (%) (Auto) 1.8 0.0-7.0 % Basophils (%) (Auto) 0.4 0.0-2.0 % Neutrophils # (Auto) 7.9 1.6-8.6 10 ^3/uL Lymphocytes # (Auto) 1.6 0.4-5.4 10 ^3/uL Monocytes # (Auto) 0.8 0-1.3 10 ^3/uL Eosinophils # (Auto) 0.2 0-0.8 10 ^3/uL Basophils # (Auto) 0 0-0.2 10 ^3/uL Nucleated Red Blood Cells 0.0 % Sodium Level 120 L 136-145 mmol/L Potassium Level 4.1 3.5-5.1 mmol/L Chloride Level 84 L 98-107 mmol/L Carbon Dioxide Level 25 20-31 mmol/L Anion Gap 11 5-15 Blood Urea Nitrogen < 5 L 9-23 mg/dL Creatinine 0.64 0.550-1.02 mg/dL Glomerular Filtration Rate Calc 94 >90 mL/min BUN/Creatinine Ratio 7.8 L 10.0-20.0 Serum Glucose 204 H 74-106 mg/dL Calcium Level 9.4 8.7-10.4 mg/dL Total Bilirubin 0.4 0.2-1.0 mg/dL Aspartate Amino Transferase (AST) 32 13-40 U/L Alanine Aminotransferase (ALT) 22 7-40 U/L Alkaline Phosphatase 109 46-116 U/L B-Type Natriuretic Peptide 159.67 0-100 pg/mL Total Protein 7.9 5.7-8.2 g/dL Albumin 4.7 3.2-4.8 g/dL Lipase 36 12-53 U/L SEPSIS Sepsis Screen Date sepsis recognized/suspect: Jun 08, 2025 Time Sepsis recognized/suspect: 1954 Recent Procedure: No On Antibiotic Therapy: No Respiratory Rate >20: No Heart Rate >90: No Temp<36 C (96.8 F) or >38.3 C: No SBP <90 or MAP <65 mmHG: No New Acute Mental Status Change: No Is the patient on CPAP, BIPAP,: No Physician Orders Salesperson [employer] (06/08/25 ) Urinalysis (06/08/25 20:03) Head Without Contrast (06/08/25 20:03) Electrocardigram (06/08/25 21:03) Electrocardigram (06/08/25 23:03) Ct Ab Pel Wo Con-No Oral Or Iv (06/08/25 20:22) Chest Portable (06/08/25 21:54) Admit (06/08/25 23:12) Oxygen By Nasal Cannula (06/08/25 23:12) Stat Ekg For Chest Pain (06/08/25 23:12) Notify Md Of Changes From Base (06/08/25 23:12) Partner Alliance Manager For 24 Hours (06/08/25 23:12) Emergency Dysrhythmia Protocol (06/08/25 23:12) Rhythm Strips Once Every Shift (06/08/25 23:12) Morphine Sulfate Injection (06/08/25 23:15) Nitroglycerin Sublingual (Ntrostat Subli (06/08/25 23:15) Basic Metabolic Panel (06/08/25 23:50) Lactic Acid W/ Reflex Order (06/09/25 00:05) Osmolality Urine (06/09/25 00:06) Osmolality, Serum (06/09/25 00:06) Vital Signs Date Time Temp Pulse Resp B/P (MAP) Pulse Ox O2 Delivery O2 Flow Rate FiO2 06/09/25 00:13 210/103 (138) 06/08/25 21:27 79 06/08/25 19:58 79 06/08/25 19:55 97.5 85 18 224/100 98 97.5 Laboratory Tests Test 06/08/25 20:10 06/08/25 23:19 Lactic Acid Level 4.0 mmol/L (0.4-2.0) *H 4.1 mmol/L (0.4-2.0) *H White Blood Count 10.5 10^3/uL (4.4-10.8) Assessment/Plan Assessment/Plan Assessment and Plan # Hypertensive Emergency with complication possible heart failure exacerbation CXR shows mild pulmonary congestion with cardiomegaly Echo ordered EKG Trops IV antihypertensive plus iV diuretics with the goal of slow correction ( 25% reduction in 24 hours ) Urine analysis Elevated BNP # moderate, likely chronic, hypo-osmolar hyponatremia, likely hypervolumic, considering pulmonary congestion due to volume overload, asymptomatic -serum osm -urine osm urine sodium Corrected sodium 122 Slow correction not more than six mEq in 24 hours, Continue IV Lasix BMP Q6hr # elevated lactic acid likely due to ? CHF exacerbation , down trending Monitor lactic acid IV fluids and IV antibiotics were given by the ER physician # diabetes mellitus type 2 Mild sliding scale HbA1c # Hyperlipidemia Ordered lipid levels Statins # Dextrocardia with situs invertus seen on xray Code status discussed with the patient for greater than 21 minutes, full code Case discussion with Dr. Ghosh Plan discussed with: Other My Orders Orders - BEHZAD BASSETT RESIDENT Procedure Category Date Status Time Admit ADMIT 06/08/25 Transmitted 23:12 Oxygen By Nasal RT 06/08/25 Transmitted Cannula 23:12 Stat Ekg For Chest [facility] 06/08/25 In Process Pain 23:12 Notify Of Changes [facility] 06/08/25 In Process From Base 23:12 Partner Alliance Manager For [facility] 06/08/25 In Process 24 Hours 23:12 Emergency Dysrhythmia [facility] 06/08/25 In Process Protocol 23:12 Rhythm Strips Once [facility] 06/08/25 In Process Every Shift 23:12 Morphine Sulfate PHA 06/08/25 In Process Injection 23:15 Nitroglycerin PHA 06/08/25 In Process Sublingual (Ntrostat 23:15 Basic Metabolic Panel LAB 06/08/25 Logged 23:50 Lactic Acid W/ Reflex LAB 06/09/25 Logged Order 00:05 Osmolality Urine LAB 06/09/25 Logged 00:06 Osmolality, Serum LAB 06/09/25 Logged 00:06 Date of Service: Jun 08, 2025 Billing Provider: RODGER GHOSH MD Common Visit Codes: [id number] INP/OBS CARE (HIGH) Secondary Visit Codes: [id number] CARE PLAN 30 MINUTES BEHZAD BASSETT RESIDENT Jun 09, 2025 00:35 RODGER GHOSH MD Jun 10, 2025 19:34
[2025-06-09] MEDS: LABETALOL HCL 20 MG/4 ML VL IV ONE (01:10)
[2025-06-09] MEDS: FUROSEMIDE 20 MG/2 ML VIAL IV ONE ×2 (01:10→05:08)
[2025-06-09 01:22] LABS: Hematocrit 41.2 % (36.0-46.0); Hemoglobin 13.9 g/dL (12.2-16.2); Mean Corpuscular Hemoglobin 28.8 pg (28.0-32.0); Mean Corpuscular Volume 85.1 fL (80.0-100.0); Nucleated Red Blood Cells % 0.0 %
[2025-06-09] MEDS: MORPHINE SULFATE INJ 2 MG/ml SYRG IV PRN (01:27)
[2025-06-09 01:33] LABS: Potassium 4.0 mmol/L (3.5-5.1)
[2025-06-09 01:34] LABS: Anion Gap 12 (5-15); Carbon Dioxide 25 mmol/L (20-31)
[2025-06-09 01:35] LABS: Calcium 9.4 mg/dL (8.7-10.4)
[2025-06-09 01:36] LABS: Chloride 83 mmol/L (98-107); Sodium 120 mmol/L (136-145)
[2025-06-09 01:39] LABS: Triglycerides 126 mg/dL (< 150)
[2025-06-09 01:40] LABS: Magnesium 1.8 mg/dL (1.6-2.6)
[2025-06-09 01:41] LABS: HDL Cholesterol 46 mg/dL (40-59); Lactic Acid w/Reflex 2.9 mmol/L (0.4-2.0)
[2025-06-09 01:46] LABS: BUN/Creatinine Ratio 8.5 (10.0-20.0); Blood Urea Nitrogen < 5 mg/dL (9-23); Glucose 201 mg/dL (74-106)
[2025-06-09 01:49] LABS: Urine Protein, UAD 2+ (Negative)
[2025-06-09 01:54] LABS: Cholesterol 129 mg/dL (< 200)
[2025-06-09] MEDS: ENALAPRILAT 1.25 MG/ML-1ML VIAL IV ONE (01:55)
[2025-06-09] MEDS ORDERED: FUROSEMIDE 20 MG/2 ML VIAL IV ONE (02:45)
[2025-06-09] MEDS: SODIUM CHLORIDE 0.9% 500 ML IV ONE (03:04)
[2025-06-09 03:30] VITALS: PULSE 77; RESP 17; O2SAT 98
[2025-06-09] MEDS: NITROGLYCERIN 0.4 MG SL TAB SL ONE (03:34)
--- NOTE | 2025-06-09 04:10 | ECG ---
[facility] Test Date: 2025-06-09 Test Time: 04:04:15 Pat Name: FABIOLA SKINNERODepartment: Room: 0291 Gender: F Garde Manager: NAZ : [id number] Requested By: BEHZAD BASSETT Order Number: [id number] Reading MD: Dionisio Amos Measurements Intervals [place] Rate: 77 P: 166 ID: [id number] QRS: 190 QRSD: 83 T: 205 QT: 462 QTc: 523 Interpretive Statements Sinus or ectopic atrial rhythm Right ventricular hypertrophy Anterolateral infarct, age indeterminate Prolonged QT interval Electronically Signed On 06-16-2025 18:55:30 PDT by Dionisio Amos Please click the below link to view image of tracing.
[2025-06-09] MEDS: InsuLIN REG 1unit/0.01ml Soln (100units/ml) SC SCH ×2 (05:33→06:00)
[2025-06-09] MEDS: ACCU-CHEK COMFORT CURVE STRIP VI SCH ×2 (05:33→06:24)
[2025-06-09] MEDS: ATORVASTATIN 20 MG TAB PO SCH (05:45)
[2025-06-09] MEDS: PANTOPRAZOLE 40 MG TAB PO SCH (06:00)
[2025-06-09 07:30] VITALS: PULSE 82; RESP 15; O2SAT 95
--- NOTE | 2025-06-09 07:37 | DVH ---
CHEST RADIOGRAPH Indication: sob Technique: Single frontal view of the chest was obtained Comparison: XY CHEST PORTABLE on DOS: 06/08/25 ; CT abdomen pelvis dated 06/08/2025. FINDINGS: Lines and Tubes: None Lungs: No focal consolidation. Pleura: No effusion. No pneumothorax. Cardiomediastinal contours: Dextrocardia. Bones: No acute osseous abnormality. IMPRESSION: 1. No acute cardiopulmonary disease.
[2025-06-09 07:54] LABS: Hematocrit 38.6 % (36.0-46.0); Hemoglobin 13.3 g/dL (12.2-16.2); Mean Corpuscular Hemoglobin 29.1 pg (28.0-32.0); Mean Corpuscular Volume 84.5 fL (80.0-100.0); Nucleated Red Blood Cells % 0.1 %
--- NOTE | 2025-06-09 07:56 | DVHPNRES ---
Progress Note Date Seen: Jun 09, 2025 Resident Creating Document: ROSAURA MARIE RESIDENT Medical Necessity Reason Pt with a Central, PICC or Fol: No Subjective Review of Systems Beronica Keli Reynosoo this is a 74-year-old female patient who presents to ED with chief complaint of holocephalic and retro ocular headache, diffuse abdominal pain, lower back pain and dyspnea in Functional Class IV which started approximately five days ago and got progressively worse (pain increased from 5/10 to 10/10 the day of her admission), associated with hypertension (systolic blood pressure above 200 mmHg) and chills. Per patient he she has been c ompliant with her home medication. Denies any other associated symptoms Past medical history: Hypertension, diabetes, dyslipidemia, GERD, depression, dextrocardia Surgical history: Denies Family history: Noncontributory Social history: Lives in [place] with (next of kin). Denies current tobacco, alcohol and other drug abuse. Allergies: Denies Home medication: Metformin 1000 mg p.o. b.i.d., hydrochlorothiazide 25 mg p.o. daily, aspirin 81 mg p.o. daily, losartan 50 mg p.o. daily, simvastatin 40 mg p.o. daily, omeprazole 20 mg p.o. daily, citalopram 10 mg p.o. daily, trazodone 50 mg p.o. daily, quetiapine 50 mg p.o. daily, Lantus 60 units subcutaneous daily ( is sure if this dose). Patient seen and examined at bedside. Still complains of headache, abdominal pain, lower back pain, but reduced in intensity (eight-9/10). Does not complain of any dyspnea at this time. Objective vital signs Vital Sign Date Time Temp Pulse Resp B/P (MAP) Pulse Ox O2 Delivery O2 Flow Rate FiO2 06/09/25 05:08 169/80 06/09/25 04:27 77 06/09/25 03:30 17 98 Room Air* 0 21 06/08/25 19:55 97.5 97.5 medications Current Medications Medications Dose Ordered Sig/[place] Route Start Time Stop Time Status Last Admin Dose Admin Morphine Sulfate 2 mg Q30M PRN IV 06/08/25 23:15 06/09/25 01:27 2 MG Nitroglycerin 0.4 mg Q5MINP PRN SL 06/08/25 23:15 Insulin Human Regular Q6HR SC 06/09/25 06:00 06/09/25 05:33 3 UNITS Dextrose 50 ml UD PRN IV 06/09/25 00:30 Aspirin 81 mg DAILY PO 06/09/25 10:00 Atorvastatin Calcium 40 mg HS PO 06/09/25 05:45 Pantoprazole Sodium 40 mg DAILY@0600 PO 06/09/25 06:00 Diagnostic Test (Pha) 1 strip Q6HR 06/09/25 06:00 06/09/25 06:24 1 STRIP Dextrose 50 ml UD PRN IV 06/09/25 06:00 Enoxaparin Sodium 40 mg DAILY SC 06/09/25 10:00 Valsartan 80 mg DAILY PO 06/09/25 10:00 Furosemide 20 mg BIDD IV 06/09/25 18:00 Examination Patient lying in bed, in no acute distress General: Lucid, afebrile, mucosae are moist Cardiovascular: Right-sided S1 and S2. No murmurs, gallops or rubs Respiratory: Normal ventilation mechanics. Clear lung sounds on auscultation Abdomen: Soft, nontender, no organomegaly, can not palpate liver in left side, normal bowel sounds MSK/skin: Mobilizes 4 limbs. Skin is dry and warm Neurological: Oriented in 3 spheres. No motor no sensitive deficits. Pupils are isocoric and reactive laboratory and microbiology Test 06/09/25 07:41 Range/Units Serum Glucose Pending Problem List/Assessment/Plan Problem List/Assessment/Plan Hypertensive urgency Ruled out acute coronary syndrome Dextrocardia situs invertus Patient required antihypertensive medication. Currently with valsartan 60 mg p.o. daily and amlodipine 10 mg p.o. daily Discontinue hydrochlorothiazide due to hyponatremia Obtained head CT which showed no acute intracranial pathology Obtain troponin x3 which was negative, EKG compatible with dextrocardia (no acute findings), mildly elevated BNP. Ordered echocardiogram Hypotonic hyponatremia with euvolemia Probably secondary to hydrochlorothiazide Currently discontinued. Hyperlacticacidemia probably secondary to metformin Diabetes mellitus types two - uncontrolled (hemoglobin A1c 7.9%) Dyslipidemia Hypertension Discontinue metformin at this time Currently on insulin sliding scale Ordered lipid panel. Continue statins (home medication atorvastatin, switch to atorvastatin during admission) Lumbar chronic back pain Subacute/chronic L1 vertebral compression fracture Completed abdomen and pelvis CT which showed no acute findings, mild subacute/chronic L1 vertebral body compression fracture Goals of care discussed with patient for over 18 minutes: Full code status Discussed plan with Dr. Morales, patient and nurses: Patient presents to ED with complaint of generalized pain associated with severe hypertension, interpreted as hypertensive urgency. Obtaining workup to evaluate cause of severe high b lood pressure, including echocardiogram, arterial duplex of renal arteries leads and laboratory workup. Correcting high blood pressure with p.o. medications at this time. Plan discussed with: Patient, Spouse, Other (Nurses) My Orders My Orders Orders - ROSAURA MARIE Procedure Category Date Status Time Metanephrines Frac LAB 06/09/25 Logged Free Plasma 07:44 Enoxaparin Sodium PHA 06/09/25 In Process (Lovenox) 10:00 Valsartan (Diovan) PHA 06/09/25 In Process 10:00 Furosemide Injection PHA 06/09/25 In Process (Lasix Injection) 18:00 Date of Service: Jun 09, 2025 Billing Provider: JEANNE MORALES MD Common Visit Codes: [id number] INP/OBS CARE(HIGH) ROSAURA MARIE Jun 09, 2025 07:56 JEANNE MORALES MD Jun 13, 2025 21:33
[2025-06-09 08:03] LABS: Potassium 3.6 mmol/L (3.5-5.1)
[2025-06-09 08:04] LABS: Anion Gap 11 (5-15); Carbon Dioxide 26 mmol/L (20-31)
[2025-06-09 08:05] LABS: Calcium 9.1 mg/dL (8.7-10.4)
[2025-06-09 08:06] LABS: Chloride 86 mmol/L (98-107); Sodium 123 mmol/L (136-145)
[2025-06-09 08:10] LABS: Magnesium 1.8 mg/dL (1.6-2.6)
[2025-06-09 08:12] LABS: BUN/Creatinine Ratio 8.3 (10.0-20.0); Blood Urea Nitrogen < 5 mg/dL (9-23); Glucose 190 mg/dL (74-106)
[2025-06-09] MEDS: ENOXAPARIN SOD 40 MG/0.4 ML SYRINGE SC SCH (09:10)
[2025-06-09] MEDS: VALSARTAN 80 MG TAB PO SCH (09:11)
[2025-06-09 09:21] LABS: Lactic Acid w/Reflex 2.5 mmol/L (0.4-2.0)
[2025-06-09 09:44] LABS: Urine Protein, UAD Negative (Negative)
[2025-06-09] MEDS: VALSARTAN 80 MG TAB PO ONE (11:29)
--- NOTE | 2025-06-09 12:41 | DVH ---
ULTRASOUND RENAL CLINICAL INDICATION: HTN TECHNIQUE: Real-time sonographic, duplex, and color Doppler images of the kidneys were obtained. FINDINGS: Velocities and resistive indices are within normal limits IMPRESSION: Normal examination. [<reference, normal RI <.7>]
--- NOTE | 2025-06-09 13:15 | DVHSR ---
APPROVED REPORT EXAM: Two-dimensional and M-mode echocardiogram with Doppler and color Doppler. Blood Pressure: 169/80 mmHg INDICATION SOB RISK FACTORS Height: 65, Weight: 163 DIMENSIONS LVDd4.9 (3.8-5.7cm)LA (2D) (1.9-4.0cm)Aortic Root4.0 (2.0-3.7cm) LVDs3.0 (2.5-4.0cm)LA (MM) (1.9-4.0cm)Aortic Cusp Exc1.4 (1.5-2.0cm) EF (%) 67.0 (55-70%)Rt. Atrium (1.9-4.0cm)Asc. Aorta cm Mitral Valve MitralMitral Stenosis E wave0.61m/sMV Mean GR.mmHg A wave1.05m/sMV Peak GR.mmHg E/A ratio0.62D MVAcm2 DECEL [id number] 1/2 [place] Aortic Valve Aortic ValveAortic Stenosis V11.04m/[place] Mean GR.4mmHg V21.31m/[place] Peak GR.7mmHg LVOT Diameter1.8 (1.8-2.4cm)Doppler AVA2.02cm2 AI P 1/2 Time59.47ms Other Information Technically limited study due to dextrocardia. Conclusion lvef 55% grade 1 diastolic dysfunction normal rv function left atrium enlarged no severe valve abnormalities noted
[2025-06-09 15:25] VITALS: BP 160/74; PULSE 99; RESP 18; TEMP 97.6; O2SAT 99
[2025-06-09] MEDS ORDERED: TRAZ-227 PO ×2 (16:54)
[2025-06-09] MEDS ORDERED: SIMV40TA18 PO ×2 (16:54)
[2025-06-09] MEDS ORDERED: OMEP1CAP70 PO ×2 (16:54)
[2025-06-09] MEDS ORDERED: QUET50TA27 PO ×2 (16:54)
[2025-06-09] MEDS ORDERED: ESCI1TAB36 PO ×2 (16:54)
[2025-06-09] MEDS ORDERED: METF-490 ×2 (16:54)
[2025-06-09] MEDS ORDERED: LOSA-534 PO (16:54)
[2025-06-09] MEDS ORDERED: ASPI1TAB20 PO ×2 (16:55)
[2025-06-09] MEDS ORDERED: HYDR25TA5 PO (16:56)
[2025-06-09 16:59] VITALS: BP 136/75; PULSE 102; RESP 19; TEMP 98.1; O2SAT 96
[2025-06-09] MEDS ORDERED: FUROSEMIDE 20 MG/2 ML VIAL IV SCH (18:00)
[2025-06-09 20:00] VITALS: PULSE 92
[2025-06-09 21:00] VITALS: BP 145/63; PULSE 92; RESP 17; TEMP 98.6; O2SAT 98
[2025-06-09] MEDS: MELATONIN 5 MG TAB PO ONE (22:17)
[2025-06-10] VITALS (8 sets, daily range): BP systolic 109–167; BP diastolic 72–89; PULSE 74–96; RESP 16–18; TEMP 96.2–98.5; O2SAT 96–99
[2025-06-10 06:37] LABS: Hematocrit 38.4 % (36.0-46.0); Hemoglobin 13.1 g/dL (12.2-16.2); Mean Corpuscular Hemoglobin 28.9 pg (28.0-32.0); Mean Corpuscular Volume 84.9 fL (80.0-100.0); Nucleated Red Blood Cells % 0.0 %
[2025-06-10 06:44] LABS: Potassium 3.6 mmol/L (3.5-5.1)
[2025-06-10 06:45] LABS: Anion Gap 10 (5-15); Calcium 9.2 mg/dL (8.7-10.4); Carbon Dioxide 26 mmol/L (20-31)
[2025-06-10 06:47] LABS: Chloride 90 mmol/L (98-107); Sodium 126 mmol/L (136-145)
[2025-06-10 06:50] LABS: BUN/Creatinine Ratio 11.9 (10.0-20.0); Blood Urea Nitrogen 7 mg/dL (9-23); Glucose 212 mg/dL (74-106)
[2025-06-10 06:51] LABS: Magnesium 1.9 mg/dL (1.6-2.6)
[2025-06-10] MEDS: VALSARTAN 80 MG TAB PO SCH (09:28)
--- NOTE | 2025-06-10 17:22 | DVHPNRES ---
Progress Note Date Seen: Jun 10, 2025 Resident Creating Document: FABIOLA BAKER RESIDENT Medical Necessity Reason Pt with a Central, PICC or Fol: No Subjective Review of Systems Fabiola Comer this is a 74-year-old female patient who presents to ED with chief complaint of holocephalic and retro ocular headache, diffuse abdominal pain, lower back pain and dyspnea in Functional Class IV which started approximately five days ago and got progressively worse (pain increased from 5/10 to 10/10 the day of her admission), associated with hypertension (systolic blood pressure above 200 mmHg) and chills. Per patient he she has been compliant with her home medication. Denies any other associated symptoms Past medical history: Hypertension, diabetes, dyslipidemia, GERD, depression, dextrocardia Surgical history: Denies Family history: Noncontributory Social history: Lives in [place] with (next of kin). Denies current tobacco, alcohol and other drug abuse. Allergies: Denies Home medication: Metformin 1000 mg p.o. b.i.d., hydrochlorothiazide 25 mg p.o. daily, aspirin 81 mg p.o. daily, losartan 50 mg p.o. daily, simvastatin 40 mg p.o. daily, omeprazole 20 mg p.o. daily, citalopram 10 mg p.o. daily, trazodone 50 mg p.o. daily, quetiapine 50 mg p.o. daily, Lantus 60 units subcutaneous daily ( is sure if this dose). Patient seen and examined at bedside. Patient presented dyspnea and Functional Class IV requiring oxygen therapy with nasal cannula 2 L/min. Postpone discharge optimizing preload and afterload. Objective vital signs Vital Sign Date Time Temp Pulse Resp B/P (MAP) Pulse Ox O2 Delivery O2 Flow Rate FiO2 06/10/25 13:00 96.2 74 18 167/82 (110) 99 96.2 06/10/25 08:00 Nasal Cannula* 2 28 Total Intake and Output 06/09/25 06/09/25 06/10/25 15:00 23:00 07:00 Intake Total 300 ml 575 ml Balance 300 ml 575 ml medications Current Medications Medications Dose Ordered Sig/[place] Route Start Time Stop Time Status Last Admin Dose Admin Morphine Sulfate 2 mg Q30M PRN IV 06/08/25 23:15 06/09/25 01:27 2 MG Nitroglycerin 0.4 mg Q5MINP PRN SL 06/08/25 23:15 Insulin Human Regular Q6HR SC 06/09/25 06:00 06/10/25 12:08 4 UNITS Aspirin 81 mg DAILY PO 06/09/25 10:00 06/10/25 09:27 81 MG Atorvastatin Calcium 40 mg HS PO 06/09/25 05:45 06/09/25 21:02 40 MG Pantoprazole Sodium 40 mg DAILY@0600 PO 06/09/25 06:00 06/10/25 05:01 40 MG Diagnostic Test (Pha) 1 strip Q6HR 06/09/25 06:00 06/10/25 11:59 1 STRIP Dextrose 50 ml UD PRN IV 06/09/25 06:00 Enoxaparin Sodium 40 mg DAILY SC 06/09/25 10:00 06/10/25 09:27 40 MG Valsartan 160 mg DAILY PO 06/10/25 10:00 06/10/25 09:28 160 MG Amlodipine Besylate 10 mg DAILY PO 06/10/25 10:00 06/10/25 09:28 10 MG Empaglifozin 10 mg DAILY PO 06/11/25 10:00 Trazodone HCl 50 mg HS PO 06/11/25 22:00 Quetiapine Fumarate 50 mg BID PO 06/10/25 22:00 Examination General: Lucid, afebrile, mucosae are moist Cardiovascular: Right-sided S1 and S2. No murmurs, gallops or rubs Respiratory: Normal ventilation mechanics. Clear lung sounds on auscultation Abdomen: Soft, nontender, no organomegaly, can not palpate liver in left side, normal bowel sounds MSK/skin: Mobilizes 4 limbs. Skin is dry and warm Neurological: Oriented in 3 spheres. No motor no sensitive deficits. Pupils are isocoric and reactive laboratory and microbiology Laboratory Tests 06/10/25 05:43 Test 06/10/25 05:43 Range/Units Serum Glucose 212 H 74-106 mg/dL Problem List/Assessment/Plan Problem List/Assessment/Plan Hypertensive urgency Ruled out acute coronary syndrome Dextrocardia situs invertus Acute respiratory failure secondary to heart failure Acute on chronic diastolic congestive heart failure (HFpEF, LVEF 55%) Patient required antihypertensive medication. Currently with valsartan 60 mg p.o. daily and amlodipine 10 mg p.o. daily Discontinue hydrochlorothiazide due to hyponatremia Obtained head CT which showed no acute intracranial pathology Obtain troponin x3 which was negative, EKG compatible with dextrocardia (no acute findings), mildly elevated BNP. Completed echocardiogram: LVEF 55%, grade 1 diastolic dysfunction, left atrial enlargement, no severe valve abnormalities, dextrocardia Patient currently on nasal cannula at 2 L/min. Indicated IV furosemide, we will manage afterload and preload. Hypotonic hyponatremia with euvolemia Probably secondary to hydrochlorothiazide Currently discontinued. Hyperlacticacidemia probably secondary to metformin Diabetes mellitus types two - uncontrolled (hemoglobin A1c 7.9%) Dyslipidemia Hypertension Discontinue metformin at this time Currently on insulin sliding scale Ordered lipid panel. Continue statins (home medication atorvastatin, switch to atorvastatin during admission) Lumbar chronic back pain, chronic hip pain Subacute/chronic L1 vertebral compression fracture Completed abdomen and pelvis CT which showed no acute findings, mild subacute/chronic L1 vertebral body compression fracture inj toradol once, F/u outpatient. Goals of care discussed with patient for over 18 minutes: Full code status Discussed plan with Dr. Morales, patient and nurses: Patient presents to ED with complaint of generalized pain associated with severe hypertension, interpreted as hypertensive urgency. Obtaining workup to evaluate cause of severe high blood pressure, including echocardiogram, arterial duplex of renal arteries and laboratory workup. Correcting high blood pressure with p.o. medications at this time. Postpone discharge since patient required oxygen at this time, indicated IV diuretics and optimizing afterload medication Plan discussed with: Patient, Other (RN) My Orders My Orders Orders - FABIOLA BAKER Procedure Category Date Status Time Transfer Orders XFER 06/10/25 Transmitted 08:43 Discontinue Tele [facility] 06/10/25 In Process 08:43 Ketorolac Injection PHA 06/10/25 Logged (Toradol Injection) 16:45 Quetiapine Fumarate PHA 06/10/25 In Process Tablet (Seroquel Tab 22:00 Trazodone Hcl PHA 06/11/25 In Process (Desyrel) 22:00 Date of Service: Jun 10, 2025 Billing Provider: JEANNE MORALES MD Common Visit Codes: [id number] INP/OBS CARE(HIGH) FABIOLA BAKER RESIDENT Jun 10, 2025 17:22 ROSAURA MARIE RESIDENT Jun 14, 2025 08:27 JEANNE MORALES MD Jun 14, 2025 10:25
[2025-06-10] MEDS: FUROSEMIDE 40 MG/4 ML VIAL IV ONE (17:50)
[2025-06-10] MEDS: KETOROLAC TROMETH 30 MG/ML 1ML VIAL IV ONE (17:51)
[2025-06-11 01:00] VITALS: BP 142/90; PULSE 95; RESP 17; TEMP 97.5; O2SAT 99
[2025-06-11 05:00] VITALS: BP 102/64; PULSE 96; RESP 17; TEMP 97.4; O2SAT 95
[2025-06-11 07:18] LABS: Calcium 9.8 mg/dL (8.7-10.4); Potassium 3.7 mmol/L (3.5-5.1)
[2025-06-11 07:19] LABS: Anion Gap 11 (5-15); Carbon Dioxide 25 mmol/L (20-31)
[2025-06-11 07:24] LABS: BUN/Creatinine Ratio 14.3 (10.0-20.0); Blood Urea Nitrogen 13 mg/dL (9-23)
[2025-06-11 07:29] LABS: Hematocrit 38.0 % (36.0-46.0); Hemoglobin 13.1 g/dL (12.2-16.2); Mean Corpuscular Hemoglobin 29.1 pg (28.0-32.0); Mean Corpuscular Volume 84.7 fL (80.0-100.0); Nucleated Red Blood Cells % 0.0 %
[2025-06-11 07:52] LABS: Chloride 91 mmol/L (98-107); Glucose 208 mg/dL (74-106); Sodium 127 mmol/L (136-145)
[2025-06-11 08:00] VITALS: PULSE 75; RESP 18; O2SAT 98
[2025-06-11 09:00] VITALS: BP 114/70; PULSE 98; RESP 18; TEMP 98; O2SAT 99
[2025-06-11] MEDS: EMPAGLIFLOZIN 10 MG TAB PO SCH (10:45)
--- NOTE | 2025-06-11 11:40 | DVHDSRES ---
Discharge Summary Date of Admission Resident Creating Document: BERONICA BAKER Jun 08, 2025 at 23:12 Date of Discharge: Jun 11, 2025 Admitting Diagnosis Hypertensive urgency Labs/Diagnostic Data: Laboratory Results Test 06/11/25 06:05 06/11/25 05:33 06/11/25 05:00 06/10/25 05:43 White Blood Count 7.4 10^3/uL (4.4-10.8) Red Blood Count 4.49 10^6/uL (4.0-5.20) Hemoglobin 13.1 g/dL (12.2-16.2) Hematocrit 38.0 % (36.0-46.0) Mean Corpuscular Volume 84.7 fL (80.0-100.0) Mean Corpuscular Hemoglobin 29.1 pg (28.0-32.0) Mean Corpuscular Hemoglobin Concent 34.3 g/dL (32.0-36.0) Red Cell Distribution Width 14.0 % (11.8-14.3) Platelet Count 388 10^3/uL (140-450) Mean Platelet Volume 7.0 fL (6.9-10.8) Neutrophils (%) (Auto) 66.4 % (37.0-80.0) Lymphocytes (%) (Auto) 20.6 % (10.0-50.0) Monocytes (%) (Auto) 10.3 % (0.0-12.0) Eosinophils (%) (Auto) 2.2 % (0.0-7.0) Basophils (%) (Auto) 0.5 % (0.0-2.0) Neutrophils # (Auto) 4.9 10 ^3/uL (1.6-8.6) Lymphocytes # (Auto) 1.5 10 ^3/uL (0.4-5.4) Monocytes # (Auto) 0.8 10 ^3/uL (0-1.3) Eosinophils # (Auto) 0.2 10 ^3/uL (0-0.8) Basophils # (Auto) 0 10 ^3/uL (0-0.2) Nucleated Red Blood Cells 0.0 % POC Glucose 207 mg/dl (70-106) Sodium Level 127 mmol/L (136-145) Potassium Level 3.7 mmol/L (3.5-5.1) Chloride Level 91 mmol/L (98-107) Carbon Dioxide Level 25 mmol/L (20-31) Anion Gap 11 (5-15) Blood Urea Nitrogen 13 mg/dL (9-23) Creatinine 0.91 mg/dL (0.550-1.02) Glomerular Filtration Rate Calc 67 mL/min (>90) BUN/Creatinine Ratio 14.3 (10.0-20.0) Serum Glucose 208 mg/dL (74-106) Calcium Level 9.8 mg/dL (8.7-10.4) Magnesium Level 1.9 mg/dL (1.6-2.6) Test 06/09/25 10:00 06/09/25 08:21 06/09/25 08:11 06/09/25 07:41 Lactic Acid Level 1.4 mmol/L (0.4-2.0) Urine Color Colorless (Yellow) Urine Clarity Clear (Clear) Urine pH 7.5 (5.0-9.0) Urine Specific [place] 1.005 (1.001-1.035) Urine Protein Negative (Negative) Urine Ketones Negative (Negative) Urine Blood Negative /uL (Negative) Urine Nitrite Negative (Negative) Urine Bilirubin Negative (Negative) Urine Urobilinogen Normal mg/dL (Negative) Urine Leukocyte Esterase Negative /uL (Negative) Urine RBC <1 /hpf (0 - 4) Urine Microscopic WBC 1 /HPF (0-5) Urine Squamous Epithelial Cells Few /hpf (<5) Urine Bacteria None seen /hpf (None Seen) Urine Glucose Normal mg/dL (Normal) Thyroid Stimulating Hormone (TSH) 1.78 uIU/mL (0.55-4.78) Test 06/09/25 01:00 06/09/25 00:42 06/08/25 20:10 Hemoglobin A1c 7.9 % A1C (<5.7) Serum Osmolality 269 mOsm/kg (278-298) Troponin I High Sensitivity 3 ng/L (</=34) B-Type Natriuretic Peptide 168.46 pg/mL (0-100) Triglycerides Level 126 mg/dL (< 150) Cholesterol Level 129 mg/dL (< 200) LDL Cholesterol 70 mg/dL (< 100) HDL Cholesterol 46 mg/dL (40-59) Urine Osmolality 503 mOsm/kg Urine Sodium 103 mmol/L (40-220) Total Bilirubin 0.4 mg/dL (0.2-1.0) Aspartate Amino Transferase (AST) 32 U/L (13-40) Alanine Aminotransferase (ALT) 22 U/L (7-40) Alkaline Phosphatase 109 U/L (46-116) Total Protein 7.9 g/dL (5.7-8.2) Albumin 4.7 g/dL (3.2-4.8) Lipase 36 U/L (12-53) Other Laboratory Tests 06/11/25 06:05 06/11/25 05:00 Brief Hx & Hospital Course: Beronica Comer this is a 74-year-old female patient who presents to ED with chief complaint of holocephalic and retro ocular headache, diffuse abdominal pain, lower back pain and dyspnea in Functional Class IV which started approximately five days ago and got progressively worse (pain increased from 5/10 to 10/10 the day of her admission), associated with hypertension (systolic blood pressure above 200 mmHg) and chills. Per patient he she has been compliant with her home medication. Denies any other associated symptoms Past medical history: Hypertension, diabetes, dyslipidemia, GERD, depression, dextrocardia Surgical history: Denies Family history: Noncontributory Social history: Lives in [place] with (next of kin). Denies current tobacco, alcohol and other drug abuse. Allergies: Denies Home medication: Metformin 1000 mg p.o. b.i.d., hydrochlorothiazide 25 mg p.o. daily, aspirin 81 mg p.o. daily, losartan 50 mg p.o. daily, simvastatin 40 mg p.o. daily, omeprazole 20 mg p.o. daily, citalopram 10 mg p.o. daily, trazodone 50 mg p.o. daily, quetiapine 50 mg p.o. daily, Lantus 60 units subcutaneous daily ( is sure if this dose). Patient presented to the ED with holocephalic and retro ocular headache and severe hypertension. Workup ruled out acute coronary syndrome. EKG showed findings compatible with dextrocardia, troponin 3 times was negative. BNP was mildly elevated. Head CT showed no acute intracranial pathology. CT abdomen pelvis revealed mild subacute or chronic L1 vertebral compression fracture. Hyponatremia was attributed to hydrochlorothiazide which was discontinued. Blood pressure was managed with oral antihypertensives valsartan and amlodipine. Completed echocardiogram which showed LVEF 55%, grade 1 diastolic dysfunction, and mildly enlarged left atrium. Patient presented acute respiratory failure secondary to decompensated CHF, requiring optimizing afterload and preload (optimize antihypertensive medication and gave IV diuretics). The day of discharge patient was hemodynamically stable, was tolerating food the discharge plan and followups were explained and patient verbalized understanding. The patient will follow up when DC clinic in 1 week and lead generation representative within 2 weeks. Physical examination Patient lying in bed, in no acute distress General: Lucid, afebrile, mucosae are moist Cardiovascular: Right-sided S1 and S2. No murmurs, gallops or rubs Respiratory: Normal ventilation mechanics. Clear lung sounds on auscultation Abdomen: Soft, nontender, no organomegaly, can not palpate liver in left side, normal bowel sounds MSK/skin: Mobilizes 4 limbs. Skin is dry and warm Neurological: Oriented in 3 spheres. No motor no sensitive deficits. Pupils are isocoric and reactive Discussed plan with Dr. Morales, patient and nurses Operations or Procedures Chest x-ray on 06/09 25: No acute abnormality Renal artery duplex scan on negative CT abdomen and pelvis: No acute findings, L1 vertebral body compression fracture. Chest x-ray on 06/08/2025: Cardiomegaly with mild pulmonary vascular congestion Condition at Discharge: Stable Final Diagnosis/Problems List Hypertensive urgency Acute respiratory failure secondary to heart failure Acute on chronic diastolic congestive heart failure (HFpEF, LVEF 55%) Ruled out acute coronary syndrome Dextrocardia situs invertus Hypotonic hyponatremia with euvolemia Hyperlacticacidemia probably secondary to metformin Lumbar chronic back pain, chronic hip pain Discharge Disposition: Home Discharge Instruct/Medications Diet: Cardiac 2g Na,low cholest Activity: No Restrictions, As Tolerated Follow Up/Referral: Fu with DC clinic in 1 week Medications: as per EMR Scheduled Amlodipine Besylate (Norvasc Tablet), 10 MG PO DAILY Aspirin (Aspir-81), 1 TAB PO DAILY, (Reported) Empagliflozin (Jardiance), 10 MG PO DAILY Escitalopram Oxalate (Escitalopram Oxalate), 0.5 TAB PO DAILY, (Reported) Omeprazole (Omeprazole Dr), 1 CAP PO DAILY, (Reported) Valsartan (Valsartan), 160 MG PO DAILY Miscellaneous Medications Metformin Hydrochloride (Metformin Hcl Er), (Reported) Quetiapine Fumerate (Quetiapine Fumarate), 0.5 TAB PO, (Reported) Simvastatin (Simvastatin), 1 TAB PO, (Reported) Trazodone Hcl (Trazodone Hcl), 0.5 TAB PO, (Reported) Discontinued Medications Hctz (Hydrochlorothiazide), 1 TAB PO DAILY, (Reported) Losartan Potassium (Losartan Potassium), 1 TAB PO DAILY, (Reported) Discharge Statement: "Patient was advised to return to the ER or call 911 if any headaches, dizziness, shortness of breath, chest pain, abdominal pain, bleeding, fevers, or worsening of medical condition. Patient was counseled about treatment plan, medications, possible side effects, patientverbalized understanding. All questions were answered to the best of my ability. This discharge took greater then 30 minutes in planning, reviewing documentation, counseling the patient, and discussing with other team members." ASSESSMENT ASSESSMENT Assessment Hypertensive urgency Date of Service: Jun 11, 2025 Billing Provider: JEANNE MORALES MD Common Visit Codes: 31525-UCR/OBS DISCH DAY >30min BERONICA BAKER RESIDENT Jun 11, 2025 11:40 ROSAURA MARIE RESIDENT Jun 14, 2025 08:36 JEANNE MORALES MD Jun 14, 2025 10:42
[2025-06-11] MEDS ORDERED: EMPA1TAB PO ×2 (11:57)
[2025-06-11] MEDS ORDERED: AML5T PO ×2 (11:57)
[2025-06-11] MEDS ORDERED: VALS1TAB57 PO ×2 (11:57)
[2025-06-11 13:00] VITALS: BP 120/73; PULSE 86; RESP 18; TEMP 98.1; O2SAT 97
== END 2025-06-11 14:20 | disposition home or self-care (01) | DRG 291 ==
LOC: ER 19:48 → OVERFLOW 23:12 → TELE-WESTW 06-09 15:26 → WEST WING 06-10 08:56
PROVIDERS: ADMIT Student in an Organized Health Care Education/Training Program; ATTEND Emergency Medicine
DX: I11.0 Hypertensive heart disease with heart failure (principal); I50.33 Acute on chronic diastolic (congestive) heart failure; J96.20 Acute and chronic respiratory failure, unspecified whether with hypoxia or hypercapnia; R65.11 Systemic inflammatory response syndrome (SIRS) of non-infectious origin with acute organ dysfunction; Q24.0 Dextrocardia; E22.1 Hyperprolactinemia; M48.56XA Collapsed vertebra, not elsewhere classified, lumbar region, initial encounter for fracture; E87.1 Hypo-osmolality and hyponatremia; N39.0 Urinary tract infection, site not specified; E87.20 Acidosis, unspecified; N17.9 Acute kidney failure, unspecified; E11.9 Type 2 diabetes mellitus without complications; E78.5 Hyperlipidemia, unspecified; R94.31 Abnormal electrocardiogram [ECG] [EKG]; G89.29 Other chronic pain; I16.0 Hypertensive urgency; K21.9 Gastro-esophageal reflux disease without esophagitis; Z90.710 Acquired absence of both cervix and uterus; T50.2X5A Adverse effect of carbonic-anhydrase inhibitors, benzothiadiazides and other diuretics, initial encounter; T38.3X5A Adverse effect of insulin and oral hypoglycemic [antidiabetic] drugs, initial encounter; Y92.89 Other specified places as the place of occurrence of the external cause
CPT/HCPCS: 36415; 70450; 71045; 74176; 80048; 80053; 80061; 81001; 82088; 82962; 83036; 83605; 83690; 83735; 83835; 83880; 83930; 83935; 84244; 84300; 84443; 84484; 85025; 93005; 93306; 93975; 99291; G0378; J1815; J1885

== ENCOUNTER 2025-06-15 08:18 | Outpatient (CLI) | payer MEDICAID ==
[~2025-06-15 08:18] MED LIST: AML5T PO; ASPI1TAB20 PO; EMPA1TAB PO; ESCI1TAB36 PO; HYDR25TA5 PO; LOSA-534 PO; METF-490; OMEP1CAP70 PO; QUET50TA27 PO; SIMV40TA18 PO; TRAZ-227 PO; VALS1TAB57 PO
[2025-06-15 09:22] LABS: Hemoglobin 14.1 g/dL (12.2-16.2)
[2025-06-15 09:27] LABS: Hematocrit 41.2 % (36.0-46.0); Mean Corpuscular Hemoglobin 29.1 pg (28.0-32.0); Mean Corpuscular Volume 85.1 fL (80.0-100.0); Nucleated Red Blood Cells % 0.1 %
[2025-06-15 09:39] LABS: Alanine Aminotransferase 37 U/L (7-40); Alkaline Phosphatase 95 U/L (46-116); Anion Gap 10 (5-15); BUN/Creatinine Ratio 8.1 (10.0-20.0); Blood Urea Nitrogen 5 mg/dL (9-23); Calcium 9.9 mg/dL (8.7-10.4); Carbon Dioxide 31 mmol/L (20-31); Chloride 87 mmol/L (98-107); Glucose 97 mg/dL (74-106); Potassium 4.1 mmol/L (3.5-5.1); Sodium 128 mmol/L (136-145); Triglycerides 112 mg/dL (< 150)
[2025-06-15 09:40] LABS: Total Protein 8.0 g/dL (5.7-8.2)
[2025-06-15 09:41] LABS: Albumin 4.6 g/dL (3.2-4.8); Bilirubin, Total 0.5 mg/dL (0.2-1.0); Cholesterol 122 mg/dL (< 200); HDL Cholesterol 45 mg/dL (40-59)
== END 2025-06-15 17:00 | disposition home or self-care (01) ==
LOC: LAB 08:18
PROVIDERS: ATTEND Licensed Practical Nurse
DX: I10 Essential (primary) hypertension (principal); E11.9 Type 2 diabetes mellitus without complications; E78.2 Mixed hyperlipidemia
CPT/HCPCS: 36415; 80053; 80061; 82043; 83036; 85025

== ENCOUNTER 2025-08-11 07:55 | Inpatient (IN) | payer MEDICAID ==
[~2025-08-11] VITALS: Ht 165.1 cm; Wt 67.5 kg
[~2025-08-11 07:55] MED LIST changes: -HYDR25TA5 PO; -LOSA-534 PO
--- NOTE | 2025-08-11 08:17 | ED.PDOC ---
Musculoskeletal HPI Comments 75 year old female with PMHx HTN, DM, HLD, presents to the ED with a chief compliant of RT hip pain s/p fall onset 3 days. Daughter states patient fell 3 days ago, did not tell anyone, was experiencing RT hip pain radiating to her leg. Daughter states bruise was observed patient's RT hip/RT low back region. Patient states since fall, she is not able to walk or apply pressure to RT leg due to pain. Denies head injury, LOC, chest pain, shortness of breath, numbness/tingling, dizziness, headache. No other symptoms or modifying factors present at this time. Chief Complaint: Fall Injury Time Seen by MD: 08:10 Reviewed Notes: Medications, Allergies Allergies: Coded Allergies: NO KNOWN ALLERGIES (Unverified , 06/08/25) Home Meds Active Scripts Valsartan (Valsartan) 80 Mg Tab, 160 MG PO DAILY for 30 Days, #60 TAB Prov:ROSAURA MARIE RESIDENT 06/11/25 Amlodipine Besylate (NORVASC TABLET) 5 Mg Tb, 10 MG PO DAILY for 30 Days, #60 TAB Prov:ROSAURA MAIRE RESIDENT 06/11/25 Empagliflozin (Jardiance) 10 Mg Tab, 10 MG PO DAILY for 30 Days, #30 TAB Prov:ROSAURA MARIE RESIDENT 06/11/25 Reported Medications Aspirin (Aspir-81) 81 Mg Tab, 1 TAB PO DAILY, #30 TAB 5 Refills 06/09/25 Metformin Hydrochloride (METFORMIN HCL ER) 1,000 Mg Tab 06/09/25 Quetiapine Fumerate (QUETIAPINE FUMARATE) 50 Mg Tab, 0.5 TAB PO 06/09/25 Trazodone Hcl (Trazodone Hcl) 50 Mg Tab, 0.5 TAB PO 06/09/25 Escitalopram Oxalate (ESCITALOPRAM OXALATE) 10 Mg Tab, 0.5 TAB PO DAILY 06/09/25 Omeprazole (Omeprazole Dr) 20 Mg Cap, 1 CAP PO DAILY 06/09/25 Simvastatin (Simvastatin) 40 Mg Tab, 1 TAB PO 06/09/25 Information Source: Patient, Relative, Spouse Mode of Arrival: Wheelchair Location: Right Extremity Location: Hip Timing: Days Prehospital treatment: None Severity: Moderate Able to Move Extremity: Yes Bear Weight: Limited Pain: Moderate Mechanism: Spontaneous Circumstances: Fall Onset of Symptoms: After Trauma Symptoms: Pain DVT Risk Factors: NONE Associated signs and symptoms: Hip pain Past Medical History PAST MEDICAL HISTORY: DM, High Lipids, HTN Surgical History: Denies all surgeries SEAMER History: No Pertinent SEAMER History Family History Family History: Reviewed,noncontributory to illness, No family hx of Cancer, No family hx of DM, No family hx of Heart gustavo, No family hx of HTN, No family hx ofKidney gustavo, No family hx of Liver gustavo, No family hx of Lung gustavo, No family hx of Stroke Social History Smoker: Non-Smoker Alcohol: Denies ETOH Use Drugs: Denies Drug Use Lives In: Home Constitutional: denies: chills, diaphoresis, fatigue, fever, malaise, sweats, weakness, others EENTM: denies: blurred vision, double vision, ear bleeding, ear discharge, ear drainage, ear pain, ear ringing, eye pain, eye redness, hearing loss, mouth pain, mouth swelling, nasal discharge, nose bleeding, nose congestion, nose pain, photophobia, tearing, throat pain, throat swelling, voice changes, others Respiratory: denies: cough, hemoptysis, orthopnea, SOB at rest, shortness of breath, SOB with excertion, stridor, wheezing, others Cardiovascular: denies: chest pain, dizzy spells, diaphoresis, Dyspnea on exertion, edema, irregular heart beat, left arm pain, lightheadedness, palpitations, PND, syncope, others Gastrointestinal: denies: abdomen distended, abdominal pain, blood streaked bowels, constipated, diarrhea, dysphagia, difficulty swallowing, hematemesis, melena, nausea, poor appetite, poor fluid intake, rectal bleeding, rectal pain, vomiting, others Genitourinary: denies: abnormal vagina bleeding, burning, dyspareunia, dysuria, flank pain, frequency, hematuria, incontinence, pain, , vagina discharge, urgency, others Neurological: denies: dizziness, fainting, headache, left sided numbness, left sided weakness, numbness, paresthesia, pre-existing deficit, right sided numbness, right sided weakness, seizure, speech problems, tingling, tremors, weakness, others Musculoskeletal: reports: others (LT hip pain); denies: back pain, gout, joint pain, joint swelling, muscle pain, muscle stiffness, neck pain Integumetry: denies: bruises, change in color, change in hair/nails, dryness, laceration, lesions, lumps, rash, wounds, others Allergic/Immunocompromised: denies: Difficulty Healing, Frequent Infections, Hives, Itching, others Hematologic/Lymphatic: denies: anemia, blood clots, easy bleeding, easy bruising, swollen glands, others Endocrine: denies: excessive hunger, excessive sweating, excessive thirst, excessive urination, flushing, intolerance to cold, intolerance to heat, unexplained weight gain, unexplained weight loss, others Psychiatric: denies: anxiety, bipolar disorder, depression, hopeless, panic disorder, schizophrenia, sleepless, suicidal, others All Other Systems: Reviewed and Negative Physical Exam General Appearance: Normal HEENT: Normal ENT Inspection, Pharynx Normal, TMs Normal Neck: Full Range of Motion, Non-Tender, Normal, Normal Inspection Respiratory: Chest Non-Tender, Lungs Clear, No Accessory Muscle Use, No Respiratory Distress, Normal Breath Sounds Cardiovascular: No Edema, No JVD, No Murmur, No Gallop, Normal Peripheral Pulses, Regular Rate/Rhythm Breast Exam: Deferred Gastrointestinal: No Organomegaly, Non Tender, No Pulsatile Mass, Normal Bowel Sounds, Soft Genitalia: Deferred Pelvic: Deferred Rectal: Deferred Extremities: Normal capillary refill, No pedal edema Musculoskeletal : Apperance: Normal Neurologic: Alert, library cataloging technician II-XII nml as Tested, No Motor Deficits, Normal Affect, Normal Mood, No Sensory Deficits Cerebellar Function: Normal Reflexes: Normal Skin: Dry, Normal Color, Warm Lymphatic: No Adenopathy Was a procedure done? Was a procedure done?: No Differential Diagnosis EXT Differential Diagnosis: Fracture, Sprain, Contusion, Strain X-Ray, Labs, Meds, VS Vital Signs Date Time Temp Pulse Resp B/P (MAP) Pulse Ox O2 Delivery O2 Flow Rate FiO2 08/11/25 08:30 98.4 82 16 119/71 (87) 95 98.4 08/11/25 07:59 97.6 82 16 123/57 97 97.6 Current Medications Medications (Trade) Dose Ordered Sig/[place] Route Start Time Stop Time Status Last Admin Acetaminophen/ Hydrocodone Bitart (Gage 5/325MG Tab) 1 tab ONCE ONCE PO 08/11/25 08:15 08/11/25 08:16 DC 08/11/25 08:41 [place] [id number] Ph: [phone] DIAGNOSTIC IMAGING Diagnostic Imaging Report : [id number] Signed PATIENT: FABIOLA BRAVOACCT: [id number] UNIT: [id number] : 1950 LOC: ER ROOM / BED: / AGE / SEX: 75 / F ADM STATUS: REG ER SERVICE 1 ORDERING PHYSICIAN: RADHA LACY MD PROCEDURE(s): RHIP - R HIP COMPLETE XRAY REASON: right hip pain ORDER NUMBER(s): [id number], ACCESSION NUMBER(s): [id number] CLINICAL INDICATION: right hip pain TECHNIQUE: 1 radiographic views of the pelvis and 2 views of the right hip were obtained. Comparison: None FINDINGS/IMPRESSION: Mildly displaced fracture of the right superior pubic ramus. ATED BY: PAO BRO MD DICTATED DATE/TIME: 08/11/25 100 SIGNED BY: PAO BRO MD SIGNED DATE/TIME: 08/11/25 100 CC: Time of 1ST Reevaluation: 08:40 Reevaluation 1ST: Unchanged Patient Education/Counseling: Diagnosis, Treatment, Prognosis Family Education/Counseling: Diagnosis, Treatment, Prognosis Departure 1 Departure Time of Disposition: 12:35 (Patient is unable to ambulate with intractable pain. We will admit patient for pain control and expedited rehab physical therapy) Impression: Primary Impression: Pelvis fracture, right Additional Impression: Inability to ambulate due to hip Disposition: 09 ADMITTED INPATIENT Admit to: Med Surg Condition: Serious Critical Care Note Critical Care Time?: No Stability Stability form required: No Heart Score Heart Score: Heart Score Response (Comments) Value History N/A 0 EKG N/A 0 Age N/A 0 Risk Factors N/A 0 Troponin N/A 0 Total 0 I personally scribed for RADHA LACY MD ([email or web address]) on 08/11/25 at 08:17. Electronically submitted by Joycelyn Schultz ([email or web address]). I personally scribed for RADHA LACY MD ([email or web address]) on 08/11/25 at 10:24. Electronically submitted by Joycelyn Schultz ([email or web address]). RADHA LACY MD Aug 11, 2025 08:17
[2025-08-11] MEDS: HYDROcodone-ACET 5/325MG TAB PO ONE (08:41)
--- NOTE | 2025-08-11 10:09 | DVH ---
CLINICAL INDICATION: right hip pain TECHNIQUE: 1 radiographic views of the pelvis and 2 views of the right hip were obtained. Comparison: None FINDINGS/IMPRESSION: Mildly displaced fracture of the right superior pubic ramus.
[2025-08-11] MEDS: SODIUM CHLORIDE 0.9% 1,000 ML IV ONE ×2 (12:45→13:15)
[2025-08-11] MEDS: ONDANSETRON HCL 4 MG/2 ML VIAL IV ONE (12:45)
[2025-08-11] MEDS: MORPHINE SULFATE 4 MG/ML SYR/VIAL IV ONE (12:45)
[2025-08-11] MEDS ORDERED: MORPHINE SULFATE INJ 2 MG/ml SYRG IV PRN (13:15)
[2025-08-11] MEDS ORDERED: ACETAMINOPHEN 325 MG TAB PO PRN (13:15)
--- NOTE | 2025-08-11 13:29 | DVHHPRES ---
History of Present Illness Resident Creating Document: ADRIEL MEZA History of Present Illness 75-year-old female with past medical history of hypertension, type 2 diabetes, hyperlipidemia, anxiety who presented to the ED with chief complaint of right hip pain due to mechanical fall that occurred three days back. Patient reports that three days back she fell down from the bed and hit the right hip and back. Patient states that since then she has not been able to walk and has been experiencing severe pain rated as 10/10 on the pain scale localized in the right hip and pelvic area. Patient states that the pain is localized to the right hip/pelvic area and goes slightly down to the posterior right thigh. Patient denies fever/chills, chest pain, shortness of breath, abdominal pain or any other associated symptoms at this time. We will order CBC and CMP. Right hip x-ray is showing right pubic ramus fracture. We will admit the patient due to intractable severe right thigh and pelvic pain. Home medications: patient states that has the list of medications, waiting for list. Surgical history: denies Social history: Denies smoking history, drug intake or alcohol Cardiovascular: HTN, hyperipidemia Endocrine: Diabetes Past Surgical History: None Family History: None Smoke: No ALCOHOL: none Drugs: None Lives: with Family Domestic Violence: Neg Review of Systems Constitutional: Yes: Weakness; No: Fever, Chills, Sweats, Malaise, Other Eyes: No: Pain, Vision change, Conjunctivae inflammation, Eyelid inflammation, Other, Redness ENT: No: Ear pain, Ear discharge, Nose pain, Nose discharge, Nose congestion, Mouth pain, Mouth swelling, Throat pain, Throat swelling, Other Respiratory: No: Cough, Dry, Shortness of breath, SOB with excertion, Wheezing, Hemoptysis, Pleuritic Pain, Sputum, Wheezing, Other Cardiovascular: No: Chest Pain, Palpitations, Orthopnea, Paroxysmal Noc. Dyspnea, Edema, Lt Headedness, Other Gastrointestinal: No: Nausea, Vomiting, Abdominal Pain, Diarrhea, Constipation, Melena, Hematochezia, Other Genitourinary: No Dysuria, No Frequency, No Incontinence, No Hematuria, No Retention, No Other Musculoskeletal: other (There is severe right hip pain and pelvic pain as well), leg pain; No: neck pain, shoulder pain, arm pain, back pain, hand pain, foot pain Skin: No: Rash, Lesions, Jaundice, Bruising, Other Neurological: No: Weakness, Numbness, Incoordination, Change in speech, Confusion, Seizures, Other Allergies: Coded Allergies: NO KNOWN ALLERGIES (Unverified , 06/08/25) Exam Vital Signs Vital Signs Date Time Temp Pulse Resp B/P (MAP) Pulse Ox O2 Delivery O2 Flow Rate FiO2 08/11/25 12:55 98.2 68 16 115/61 (79) 100 98.2 General Appearance: Alert, Oriented X3, Cooperative, mild distress HEENT: Atraumatic, PERRLA, EOMI, Mucous membr. moist/pink Respiratory: Clear to auscultation, Normal air movement Cardiovascular: Regular rate, Normal S1, Normal S2, No murmurs Abdominal: Normal bowel sounds, Soft, No tenderness, No hepatospenomegaly, No masses Extremities: No clubbing, No cyanosis, No edema, Normal pulses, No tenderness/swelling, Other (Patient has severe tenderness to palpation to the right hip and pelvic area) Skin: No rashes, No breakdown, No significant lesion Neuro: Normal speech, Normal tone, Sensation intact, Cranial nerves 3-12 NL, Reflexes 2+, Other (Unable to walk due to severe pain to the right hip and pelvis.) Psych/Mental Status: Mental status NL, Mood NL SEPSIS Sepsis Screen Date sepsis recognized/suspect: Aug 11, 2025 Time Sepsis recognized/suspect: 08 Recent Procedure: No On Antibiotic Therapy: No Respiratory Rate >20: No Heart Rate >90: No Temp<36 C (96.8 F) or >38.3 C: No SBP <90 or MAP <65 mmHG: No New Acute Mental Status Change: No Is the patient on CPAP, BIPAP,: No Physician Orders R Hip Complete Xray (08/11/25 08:12) Sodium Chloride 0.9% (08/11/25 12:45) Admit (08/11/25 13:05) Code Status (08/11/25 13:05) Vital Signs .PER UNIT PROTOCOL (08/11/25 13:05) Review Orders With Adm. (08/11/25 13:05) Encourage Activity As Tolerate (08/11/25 13:05) Consistent Carb(Ccho)Diabetes (08/11/25 Lunch) Acetaminophen Tablet (Tylenol Tablet) (08/11/25 13:15) Notify Md Of Changes From Base (08/11/25 13:05) Advance Directive (08/11/25 13:05) Basic Metabolic Panel (08/11/25 13:05) Urinalysis (08/11/25 13:05) Complete Blood Count (08/11/25 13:05) Lipid Panel (08/11/25 13:05) Patient Condition (08/11/25 13:05) Allergies (08/11/25 13:05) Drug Screen (08/11/25 13:05) Hemoglobin A1c (08/11/25 13:05) Lovenox 40mg (08/12/25 10:00) Morphine Sulfate Injection (08/11/25 13:15) NS (08/11/25 13:15) * Orthopedic Consult (08/11/25 13:05) Vital Signs Date Time Temp Pulse Resp B/P (MAP) Pulse Ox O2 Delivery O2 Flow Rate FiO2 08/11/25 12:55 98.2 68 16 115/61 (79) 100 98.2 08/11/25 08:30 98.4 82 16 119/71 (87) 95 98.4 08/11/25 07:59 97.6 82 16 123/57 97 97.6 Medications Medications Dose Ordered Sig/[place] Route Start Time Stop Time Status Last Admin Dose Admin Acetaminophen/ Hydrocodone Bitart 1 tab ONCE ONCE PO 08/11/25 08:15 08/11/25 08:16 DC 08/11/25 08:41 1 TAB Assessment/Plan Assessment/Plan Assessment/Plan Acute right hip and pelvic pain likely due to right pubic ramus fracture Acute excruciating right hip and pelvic pain likely due to above Acute mechanical fall causing right pelvic ramus fracture Hypertensive heart disease with possible diastolic dysfunction Type 2 diabetes mellitus Hyperlipidemia Anxiety disorder Plan -gave IV fluids in the ED -continue 75 cc/hour of NS 0.9% -pain medication with Tylenol 650 q.6 PRN and morphine 1 mg IV q.6 PRN -consulted Orthopedics for further recommendations of possible medical management -restart blood pressure medications, valsartan 80 mg daily and amlodipine 5 mg daily -sliding scale insulin and monitor blood glucose closely -restart KTP in fumarate 50 mg daily and citalopram 10 mg daily -ordered hemoglobin A1c, CBC, CMP, lipid panel -encouraged activity as tolerated and physical therapy - Goals of care discussed with the patient and daughter at bedside, full code Plan discussed with Dr. Cormier Plan discussed with: Patient, Daughter My Orders Orders - ADRIEL MEZA Procedure Category Date Status Time Admit ADMIT 08/11/25 Verified 13:05 Code Status CODE 08/11/25 Verified 13:05 Vital Signs [facility] 08/11/25 Verified 13:05 Review Orders With JOVANI 08/11/25 Verified Adm. 13:05 Encourage Activity As JOVANI 08/11/25 Verified Tolerate 13:05 Consistent DIET 08/11/25 Verified Carb(Ccho)Diabetes Lunch Acetaminophen Tablet PHA 08/11/25 Verified (Tylenol Tablet) 13:15 Notify Of Changes [facility] 08/11/25 Verified From Base 13:05 Advance Directive [facility] 08/11/25 Verified 13:05 Basic Metabolic Panel LAB 08/11/25 Verified 13:05 Urinalysis LAB 08/11/25 Verified 13:05 Complete Blood Count LAB 08/11/25 Verified 13:05 Lipid Panel LAB 08/11/25 Verified 13:05 Patient Condition ORDERS 08/11/25 Verified 13:05 Allergies [facility] 08/11/25 Verified 13:05 Drug Screen LAB 08/11/25 Verified 13:05 Hemoglobin A1c LAB 08/11/25 Verified 13:05 Lovenox 40mg PHA 08/12/25 Verified 10:00 Morphine Sulfate PHA 08/11/25 Verified Injection 13:15 NS PHA 08/11/25 Verified 13:15 * Orthopedic Consult CONS 08/11/25 Verified 13:05 Date of Service: Aug 11, 2025 Billing Provider: RODGER CORMIER MD Common Visit Codes: [id number] INP/OBS CARE (HIGH) Secondary Visit Codes: [id number] CARE PLAN 30 MINUTES ADRIEL MEZA Aug 11, 2025 13:29
[2025-08-11] MEDS ORDERED: DEXTROSE (50%) 50ML SYRG IV PRN (13:45)
[2025-08-11 13:55] LABS: Hematocrit 38.1 % (36.0-46.0); Hemoglobin 12.4 g/dL (12.2-16.2); Mean Corpuscular Hemoglobin 27.3 pg (28.0-32.0); Mean Corpuscular Volume 83.5 fL (80.0-100.0); Nucleated Red Blood Cells % 0.1 %
[2025-08-11 14:04] LABS: Anion Gap 12 (5-15); Potassium 4.2 mmol/L (3.5-5.1)
[2025-08-11 14:05] LABS: Calcium 9.6 mg/dL (8.7-10.4)
[2025-08-11 14:08] LABS: Carbon Dioxide 31 mmol/L (20-31); Chloride 85 mmol/L (98-107); Sodium 128 mmol/L (136-145)
[2025-08-11 14:10] LABS: BUN/Creatinine Ratio 17.5 (10.0-20.0); Blood Urea Nitrogen 11 mg/dL (9-23); Glucose 83 mg/dL (74-106)
[2025-08-11 16:58] LABS: Triglycerides 184 mg/dL (< 150)
[2025-08-11 16:59] LABS: Cholesterol 135 mg/dL (< 200); HDL Cholesterol 37 mg/dL (40-59)
[2025-08-11] MEDS: ACCU-CHEK COMFORT CURVE STRIP VI SCH (18:57)
[2025-08-11] MEDS: InsuLIN REG 1unit/0.01ml Soln (100units/ml) SC SCH (18:58)
[2025-08-11 21:00] VITALS: BP 180/87; PULSE 81; RESP 18; TEMP 97.8; O2SAT 96
[2025-08-11 21:50] VITALS: BP 180/87; PULSE 81; RESP 18; TEMP 97.8; O2SAT 96
[2025-08-11 21:56] VITALS: PULSE 81; RESP 18; O2SAT 96
[2025-08-11] MEDS: ATORVASTATIN 20 MG TAB PO SCH (22:27)
[2025-08-11] MEDS: MORPHINE SULFATE 4 MG/ML SYR/VIAL IV PRN (22:29)
[2025-08-11 23:04] VITALS: BP 146/79; PULSE 77; RESP 18; TEMP 98.8; O2SAT 94
[2025-08-11] MEDS ORDERED: HYDR25TA4 PO (23:11)
[2025-08-12] VITALS (8 sets, daily range): BP systolic 115–155; BP diastolic 69–79; PULSE 77–120; RESP 18; TEMP 97.4–99.1; O2SAT 0–95
[2025-08-12 08:34] LABS: Urine Protein, UAD Negative (Negative)
[2025-08-12 08:48] LABS: Opiate Scree,Urine Neg (NEGATIVE)
[2025-08-12 08:50] LABS: Amphetamine Screen, Urine Neg (NEGATIVE); Barbiturate Scree,Urine Neg (NEGATIVE); Benzodiazephine Screen, Urine Neg (NEGATIVE); Cannabinoid Screen, Urine Neg (NEGATIVE); Cocaine Screen, Urine Neg (NEGATIVE); Phencyclidine Screen, Urine Neg (NEGATIVE)
[2025-08-12 09:55] LABS: Hematocrit 36.1 % (36.0-46.0); Hemoglobin 12.1 g/dL (12.2-16.2); Mean Corpuscular Hemoglobin 28.0 pg (28.0-32.0); Mean Corpuscular Volume 83.8 fL (80.0-100.0); Nucleated Red Blood Cells % 0.0 %
[2025-08-12 10:10] LABS: INR 1.03 (0.9-1.15); Partial Thromboplastin Time 25.8 SEC (24.5-34.5); Potassium 4.1 mmol/L (3.5-5.1); Prothrombin Time 10.9 sec (9.3-11.8)
[2025-08-12 10:11] LABS: Anion Gap 9 (5-15); Calcium 9.1 mg/dL (8.7-10.4)
--- NOTE | 2025-08-12 10:12 | DVH ---
INDICATION: Preoperative evaluation, pain TECHNIQUE: Frontal view of the chest. COMPARISON: XY CHEST XRAY 1 VIEW on DOS: 06/09/25, XY CHEST PORTABLE on DOS: 06/08/25 FINDINGS: . The heart and mediastinal contours are grossly unremarkable. There is no evidence of pleural disease. The lungs are clear. The bony structures of the chest are intact without fracture. IMPRESSION: 1. No evidence of acute disease. Dextrocardia.
[2025-08-12 10:16] LABS: BUN/Creatinine Ratio 12.2 (10.0-20.0); Blood Urea Nitrogen 9 mg/dL (9-23)
[2025-08-12 10:23] LABS: Carbon Dioxide 31 mmol/L (20-31); Chloride 87 mmol/L (98-107); Glucose 293 mg/dL (74-106); Sodium 127 mmol/L (136-145)
[2025-08-12] MEDS: CITALOPRAM HYDROBR 20 MG TAB PO SCH (10:58)
[2025-08-12] MEDS: ENOXAPARIN SOD 40 MG/0.4 ML SYRINGE SC SCH (11:02)
[2025-08-12] MEDS: VALSARTAN 80 MG TAB PO SCH (11:02)
[2025-08-12] MEDS: INSULIN LANTUS (GLARGINE) 1 /0.01ml (100units/ml) SC SCH (12:31)
--- NOTE | 2025-08-12 19:27 | DVHINCON2 ---
Consult Note Consult Consult Note History of Present Illness: Ms. Keli Loco is an inpatient evaluated today following a ground-level fall. She was seen in the emergency room yesterday where X-ray imaging was completed and demonstrated a right superior pubic ramus fracture. She was admitted for pain control. On interview today, the patient reports her pain is well controlled. She was able to walk 200 yards with physical therapy using a walker and reports that her pain remains well controlled while ambulating with assistance. No new complaints or concerns reported. Past Medical History: As per chart; reviewed. Past Surgical History: As per chart; reviewed. Medications: As per chart. Allergies: As per chart. Physical Examination: General: Alert, oriented, cooperative, in no acute distress. Right Pelvis / Hip Exam: Inspection: No gross deformity or limb length discrepancy. Palpation: Tenderness to palpation over the right superior pubic ramus fracture site. Range of Motion: Reduced hip ROM secondary to pain during ROM exercises. Motor/Sensory: Gross neurovascularly intact distally. Skin: Intact, no erythema, no ecchymosis concerning for expanding hematoma. Imaging Reviewed: X-ray Pelvis: Right superior pubic ramus fracture noted. No displacement requiring operative intervention at this time. Assessment: Right superior pubic ramus fracture, ground-level fall mechanism. Pain currently well controlled. Ambulating 200 yards with physical therapy using a walker. Plan: 1. Protective weight-bearing with walker for a total of 6 weeks. 2. Continue pain management as per primary team. 3. Continue physical therapy as tolerated. 4. Follow-up with orthopedics as outpatient in 2 weeks for repeat X-ray, or sooner if symptoms worsen. 5. Return precautions discussed in detail. All questions were answered. The patient agrees with the plan. Plan discussed with: Patient, Other (bedside nurse) Visit Coding Surgery Date of Service if different f: Aug 12, 2025 Billing Provider: MEL GARCIA Surgery Visit Codes: [id number] - INP CONSULT <55 MIN MEL GARCIA Aug 12, 2025 19:27
--- NOTE | 2025-08-12 20:28 | DVHPNRES ---
Progress Note Date Seen: Aug 12, 2025 Resident Creating Document: BIN MEJIA RESIDENT Has the PT tested + for MRSA If YES, has PT been informed?: No Medical Necessity Reason Pt with a Central, PICC or Fol: No Subjective Review of Systems Beronica Joseph is a 75-year-old female patient, with past medical history of hypertension, type 2 diabetes, hyperlipidemia and anxiety. The patient came to the [facility] ED with chief complaint of 3 days of right hip pain after a mechanical fall, Patient reports that three days ago she fell down from her bed and hit the right hip and back, she denies trauma to other part of her body or lost of consciousness. The patient states that since then she has not been able to walk and has been experiencing severe pain rated as 10/10 on the pain scale localized in the right hip and pelvic area, irradiates down to the right posterior thigh. The patient denies fever/chills, chest pain, shortness of breath, abdominal pain or any other associated symptoms at this time. Right hip x-ray is showing right pubic ramus fracture. The patient was admitted for further assessment and management. Past medica history: HTN, hyperipidemia, DM2 Surgical history: denies Social history: Denies smoking history, drug intake or alcohol Hospital course: On 08/12/25, the patient was evaluated and examined at bedside. VS, labs and chart was reviewed. The patient reports improvement in pain after analgesics to 7/10. The patient was started on IV ceftriaxone due to UTI. Orthopedic consult was placed. We will continue following this patient progress. Constitutional: Yes: Weakness; No: Fever, Chills, Sweats, Malaise, Other Eyes: No: Pain, Vision change, Conjunctivae inflammation, Eyelid inflammation, Other, Redness ENT: No: Ear pain, Ear discharge, Nose pain, Nose discharge, Nose congestion, Mouth pain, Mouth swelling, Throat pain, Throat swelling, Other Respiratory: No: Cough, Dry, Shortness of breath, SOB with excertion, Wheezing, Hemoptysis, Pleuritic Pain, Sputum, Wheezing, Other Cardiovascular: No: Chest Pain, Palpitations, Orthopnea, Paroxysmal Noc. Dyspnea, Edema, Lt Headedness, Other Gastrointestinal: No: Nausea, Vomiting, Abdominal Pain, Diarrhea, Constipation, Melena, Hematochezia, Other Genitourinary: No Dysuria, No Frequency, No Incontinence, No Hematuria, No Retention, No Other Musculoskeletal: Moderate right hip pain, pelvic pain and leg pain; No: neck pain, shoulder pain, arm pain, back pain, hand pain, foot pain Skin: No: Rash, Lesions, Jaundice, Bruising, Other Neurological: No: Weakness, Numbness, Incoordination, Change in speech, Confusion, Seizures, Other Allergies: No known allergies. Objective vital signs Vital Sign Date Time Temp Pulse Resp B/P (MAP) Pulse Ox O2 Delivery O2 Flow Rate FiO2 08/12/25 17:00 98.3 85 18 145/69 (94) 94 98.3 08/12/25 08:00 Room Air* 0 21 Total Intake and Output 08/11/25 08/11/25 08/12/25 15:00 23:00 07:00 Intake Total 300 ml Balance 300 ml medications Current Medications Medications Dose Ordered Sig/[place] Route Start Time Stop Time Status Last Admin Dose Admin Acetaminophen 650 mg Q6HP PRN PO 08/11/25 13:15 Enoxaparin Sodium 40 mg DAILY SC 08/12/25 10:00 08/12/25 11:02 40 MG Diagnostic Test (Pha) 1 strip ACHS 08/11/25 17:00 08/12/25 16:49 1 STRIP Insulin Human Regular ACHS SC 08/11/25 17:00 08/12/25 16:57 4 UNITS Dextrose 50 ml UD PRN IV 08/11/25 13:45 Aspirin 81 mg DAILY PO 08/12/25 10:00 08/12/25 10:58 81 MG Atorvastatin Calcium 40 mg HS PO 08/11/25 22:00 08/11/25 22:27 40 MG Citalopram Hydrobromide 10 mg DAILY PO 08/12/25 10:00 08/12/25 10:58 10 MG Valsartan 80 mg DAILY PO 08/12/25 10:00 08/12/25 11:02 80 MG Amlodipine Besylate 5 mg DAILY PO 08/11/25 20:00 08/12/25 10:59 5 MG Quetiapine Fumarate 50 mg HS PO 08/11/25 22:00 08/11/25 23:50 50 MG Morphine Sulfate 1 mg Q4HP PRN IV 08/11/25 21:45 08/11/25 22:29 1 MG Ceftriaxone Sodium 50 ml @ 100 mls/hr DAILY@09 IV 08/13/25 09:00 Insulin Glargine 15 units DAILY@1000 SC 08/13/25 10:00 laboratory and microbiology Laboratory Tests 08/12/25 09:39 Test 08/12/25 09:39 Range/Units Serum Glucose 293 H 74-106 mg/dL Problem List/Assessment/Plan Problem List/Assessment/Plan #Acute right hip and pelvic pain likely due to right pubic ramus fracture #Acute excruciating right hip and pelvic pain likely due to above #Acute mechanical fall causing right pelvic ramus fracture -pain medication with Tylenol 650 q.6 PRN and morphine 1 mg IV q.6 PRN -consulted Orthopedics for further recommendations of possible medical management: * Protective weight-bearing with walker for a total of 6 weeks. *Continue pain management as per primary team. *Continue physical therapy as tolerated *Follow-up with orthopedics as outpatient in 2 weeks for repeat X-ray, or sooner if symptoms worsen. *Return precautions discussed in detail. -PT consult #Hypertensive heart disease with possible diastolic dysfunction -restart blood pressure medications, valsartan 80 mg daily and amlodipine 5 mg daily #Type 2 diabetes mellitus, with hyperglycemia -sliding scale insulin and monitor blood glucose closely. -HbA1C: 8.7 #Chronic Hyperlipidemia Atorvastatin 40mg po at night #Chronic Anxiety disorder - citalopram 10 mg daily Goals of care discussed with the patient > 35 min. Discussed plan of care with Dr. Cormier Code status: Full code PCP: Dr. Rutherford Plan discussed with: Patient, the patient agrees with the plan. Plan discussed with: Patient Date of Service: Aug 12, 2025 Billing Provider: RODGER CORMIER MD Common Visit Codes: [id number] INP/OBS CARE(HIGH) BIN MEJIA RESIDENT Aug 12, 2025 20:28
[2025-08-13] VITALS (7 sets, daily range): BP systolic 117–150; BP diastolic 75–89; PULSE 79–95; RESP 18–20; TEMP 36.7; O2SAT 0–98
[2025-08-13] MEDS: INSULIN LANTUS (GLARGINE) 1 /0.01ml (100units/ml) SC SCH (09:57)
[2025-08-13] MEDS ORDERED: CEFD300C2 PO (10:43)
[2025-08-13] MEDS ORDERED: TRAM-626 PO (10:44)
[2025-08-13] MEDS ORDERED: INSUINJ37 SC (11:12)
--- NOTE | 2025-08-13 11:37 | DVHDSRES ---
Discharge Summary Date of Admission Resident Creating Document: BIN MEJIA RESIDENT Aug 11, 2025 at 13:05 Date of Discharge: Aug 13, 2025 Admitting Diagnosis #Acute right hip and pelvic pain likely due to right pubic ramus fracture #Acute excruciating right hip and pelvic pain likely due to above #Acute mechanical fall causing right pelvic ramus fracture #Hypertensive heart disease with possible diastolic dysfunction #Type 2 diabetes mellitus, with hyperglycemia Wounds: No wounds present on admission. Labs/Diagnostic Data: Laboratory Results Test 08/13/25 09:55 08/12/25 09:39 08/11/25 13:28 08/11/25 08:11 POC Glucose 310 mg/dl (70-106) White Blood Count 8.7 10^3/uL (4.4-10.8) Red Blood Count 4.30 10^6/uL (4.0-5.20) Hemoglobin 12.1 g/dL (12.2-16.2) Hematocrit 36.1 % (36.0-46.0) Mean Corpuscular Volume 83.8 fL (80.0-100.0) Mean Corpuscular Hemoglobin 28.0 pg (28.0-32.0) Mean Corpuscular Hemoglobin Concent 33.5 g/dL (32.0-36.0) Red Cell Distribution Width 14.2 % (11.8-14.3) Platelet Count 350 10^3/uL (140-450) Mean Platelet Volume 6.6 fL (6.9-10.8) Neutrophils (%) (Auto) 71.0 % (37.0-80.0) Lymphocytes (%) (Auto) 16.9 % (10.0-50.0) Monocytes (%) (Auto) 9.0 % (0.0-12.0) Eosinophils (%) (Auto) 2.5 % (0.0-7.0) Basophils (%) (Auto) 0.6 % (0.0-2.0) Neutrophils # (Auto) 6.2 10 ^3/uL (1.6-8.6) Lymphocytes # (Auto) 1.5 10 ^3/uL (0.4-5.4) Monocytes # (Auto) 0.8 10 ^3/uL (0-1.3) Eosinophils # (Auto) 0.2 10 ^3/uL (0-0.8) Basophils # (Auto) 0 10 ^3/uL (0-0.2) Nucleated Red Blood Cells 0.0 % Prothrombin Time 10.9 sec (9.3-11.8) Prothrombin Time INR 1.03 (0.9-1.15) Activated Partial Thromboplast Time 25.8 SEC (24.5-34.5) Sodium Level 127 mmol/L (136-145) Potassium Level 4.1 mmol/L (3.5-5.1) Chloride Level 87 mmol/L (98-107) Carbon Dioxide Level 31 mmol/L (20-31) Anion Gap 9 (5-15) Blood Urea Nitrogen 9 mg/dL (9-23) Creatinine 0.74 mg/dL (0.550-1.02) Glomerular Filtration Rate Calc 85 mL/min (>90) BUN/Creatinine Ratio 12.2 (10.0-20.0) Serum Glucose 293 mg/dL (74-106) Calcium Level 9.1 mg/dL (8.7-10.4) Vitamin B12 Level 381 pg/mL (211-911) Vitamin D 25-Hydroxy 40.0 ng/mL (30.0-100) Hemoglobin A1c 8.7 % A1C (<5.7) Triglycerides Level 184 mg/dL (< 150) Cholesterol Level 135 mg/dL (< 200) LDL Cholesterol 70 mg/dL (< 100) HDL Cholesterol 37 mg/dL (40-59) Urine Color Light-yellow (Yellow) Urine Clarity Turbid (Clear) Urine pH 7.5 (5.0-9.0) Urine Specific [place] 1.011 (1.001-1.035) Urine Protein Negative (Negative) Urine Ketones Negative (Negative) Urine Blood Negative /uL (Negative) Urine Nitrite Negative (Negative) Urine Bilirubin Negative (Negative) Urine Urobilinogen Normal mg/dL (Negative) Urine Leukocyte Esterase 1+ /uL (Negative) Urine RBC 1 /hpf (0 - 4) Urine Microscopic WBC 5 /HPF (0-5) Urine Squamous Epithelial Cells Few /hpf (<5) Urine Bacteria None seen /hpf (None Seen) Urine Glucose Normal mg/dL (Normal) Urine Opiates Screen Neg (NEGATIVE) Urine Fentanyl Screen Neg (NEGATIVE) Urine Barbiturates Screen Neg (NEGATIVE) Urine Phencyclidine Screen Neg (NEGATIVE) Urine Amphetamines Screen Neg (NEGATIVE) Urine Benzodiazepines Screen Neg (NEGATIVE) Urine Cocaine Screen Neg (NEGATIVE) Urine Cannabinoids Screen Neg (NEGATIVE) Other Laboratory Tests 08/12/25 09:39 Brief Hx & Hospital Course: Beronica Joseph is a 75-year-old female patient, with past medical history of hypertension, type 2 diabetes, hyperlipidemia and anxiety. The patient came to the [facility] ED with chief complaint of 3 days of right hip pain after a mechanical fall, Patient reports that three days ago she fell down from her bed and hit the right hip and back, she denies trauma to other part of her body or lost of consciousness. The patient states that since then she has not been able to walk and has been experiencing severe pain rated as 10/10 on the pain scale localized in the right hip and pelvic area, irradiates down to the right posterior thigh. The patient denies fever/chills, chest pain, shortness of breath, abdominal pain or any other associated symptoms at this time. Right hip x-ray is showing right pubic ramus fracture. The patient was admitted for further assessment and management. Past medica history: HTN, hyperipidemia, DM2 Surgical history: denies Social history: Denies smoking history, drug intake or alcohol Hospital course: during her hospital stay at [facility] the patient was evaluated and assessed as follow: On 08/12/25, the patient was evaluated and examined at bedside. VS, labs and chart was reviewed. The patient reported improvement in pain after analgesics to 7/10. The patient was started on IV ceftriaxone due to UTI. Orthopedic consult was placed. On 08/13/25, the patient was evaluated and examined at bedside. VS, labs and chart was reviewed. The patient reported improvement in her right hip pain 2 /10. Orthopedic recommended: Protective weight-bearing with walker for a total of 6 weeks, continue pain management as per primary team. continue physical therapy as tolerated, follow-up with orthopedics as outpatient in 2 weeks for repeat X-ray, or sooner if symptoms worsen. Due to significant clinical improvement, the patient will be discharge home today with oral antibiotics: Cefdinir 300mg po BID for 5 days and pain medication. Also, after PT evaluation, home health was recommend for PT. Social service consult was placed for a front wheel walker and Home health services for PT. I spoke with the patient about the new medication and possible side effects, patient agreed to undertanding. The patient will follow up with PCP, othropedics and D/C clinic in 1 week. Constitutional: Yes: Weakness; No: Fever, Chills, Sweats, Malaise, Other Eyes: No: Pain, Vision change, Conjunctivae inflammation, Eyelid inflammation, Other, Redness ENT: No: Ear pain, Ear discharge, Nose pain, Nose discharge, Nose congestion, Mouth pain, Mouth swelling, Throat pain, Throat swelling, Other Respiratory: No: Cough, Dry, Shortness of breath, SOB with excertion, Wheezing, Hemoptysis, Pleuritic Pain, Sputum, Wheezing, Other Cardiovascular: No: Chest Pain, Palpitations, Orthopnea, Paroxysmal Noc. Dyspnea, Edema, Lt Headedness, Other Gastrointestinal: No: Nausea, Vomiting, Abdominal Pain, Diarrhea, Constipation, Melena, Hematochezia, Other Genitourinary: No Dysuria, No Frequency, No Incontinence, No Hematuria, No Retention, No Other Musculoskeletal: Moderate right hip pain, pelvic pain and leg pain; No: neck pain, shoulder pain, arm pain, back pain, hand pain, foot pain Skin: No: Rash, Lesions, Jaundice, Bruising, Other Neurological: No: Weakness, Numbness, Incoordination, Change in speech, Confusion, Seizures, Other Allergies: No known allergies. Physical Evaluation: Constitutional: No: Fever, Chills, Sweats, Malaise, Other Eyes: No: Pain, Vision change, Conjunctivae inflammation, Eyelid inflammation, Other, Redness ENT: No: Ear pain, Ear discharge, Nose pain, Nose discharge, Nose congestion, Mouth pain, Mouth swelling, Throat pain, Throat swelling, Other Respiratory: No: Cough, Dry, Shortness of breath, SOB with excertion, Wheezing, Hemoptysis, Pleuritic Pain, Sputum, Wheezing, Other Cardiovascular: No: Chest Pain, Palpitations, Orthopnea, Paroxysmal Noc. Dyspnea, Edema, Lt Headedness, Other Gastrointestinal: No: Nausea, Vomiting, Abdominal Pain, Diarrhea, Constipation, Melena, Hematochezia, Other Genitourinary: No Dysuria, No Frequency, No Incontinence, No Hematuria, No Retention, No Other Musculoskeletal: The patient is walking with a walker, moderate right hip pain, pelvic pain and leg pain, ; No: neck pain, shoulder pain, arm pain, back pain, hand pain, foot pain Skin: No: Rash, Lesions, Jaundice, Bruising, Other Neurological: Alert, oriented X3. No: Weakness, Numbness, Incoordination, Change in speech, Confusion, Seizures, Other Allergies: No known allergies. Consults/Reason for consult Orthopedic: right hip fracture Operations or Procedures PROCEDURE(s): RHIP - R HIP COMPLETE XRAY REASON: right hip pain ORDER NUMBER(s): [id number], ACCESSION NUMBER(s): [id number] CLINICAL INDICATION: right hip pain TECHNIQUE: 1 radiographic views of the pelvis and 2 views of the right hip were obtained. Comparison: None FINDINGS/IMPRESSION: Mildly displaced fracture of the right superior pubic ramus. ATED BY: PAO BRO MD DICTATED DATE/TIME: 08/11/25 1006 PROCEDURE(s): CXRP - CHEST PORTABLE REASON: Preoperative evaluation ORDER NUMBER(s): [id number], ACCESSION NUMBER(s): [id number] INDICATION: Preoperative evaluation, pain TECHNIQUE: Frontal view of the chest. COMPARISON: XY CHEST XRAY 1 VIEW on DOS: 06/09/25, XY CHEST PORTABLE on DOS: 06/08/25 FINDINGS: . The heart and mediastinal contours are grossly unremarkable. There is no evidence of pleural disease. The lungs are clear. The bony structures of the chest are intact without fracture. IMPRESSION: 1. No evidence of acute disease. Dextrocardia. ATED BY: KAREEM LEONG MD DICTATED DATE/TIME: 08/12/25 1010 Condition at Discharge: Stable Final Diagnosis/Problems List #Acute right hip and pelvic pain likely due to right pubic ramus fracture #Acute excruciating right hip and pelvic pain likely due to above #Acute mechanical fall causing right pelvic ramus fracture #Hypertensive heart disease with possible diastolic dysfunction #Type 2 diabetes mellitus, with hyperglycemia #Chronic Hyperlipidemia #Chronic Anxiety disorder Discharge Disposition: Home with Health Services (for PT ) SNF Discharge Will this Physician continue t: No Discharge Instruct/Medications Diet: Consistent carbohydrate, Cardiac 2g Na,low cholest Activity: No Restrictions, As Tolerated Follow Up/Referral: F/U with Orthopedics in one week F/U with PCP in one week F/U in D/C Clinic in 1 week. Medications: As per EMR Cefdinir 300mg po BID for 5 days Tramadol 50mg po Qh8 prn for pain Scheduled Amlodipine Besylate (Norvasc Tablet), 10 MG PO DAILY Aspirin (Aspir-81), 1 TAB PO DAILY, (Reported) Cefdinir (Cefdinir), 1 CAP PO BID Empagliflozin (Jardiance), 10 MG PO DAILY Escitalopram Oxalate (Escitalopram Oxalate), 0.5 TAB PO DAILY, (Reported) Hydrochlorothiazide (Hydrochlorothiazide), 25 MG PO DAILY, (Reported) Insulin Glargine (Lantus Solostar), 15 UNIT SC QPM Omeprazole (Omeprazole Dr), 1 CAP PO DAILY, (Reported) Tramadol HCl (Tramadol HCl), 50 MG PO TID, (Reported) Valsartan (Valsartan), 160 MG PO DAILY Miscellaneous Medications Metformin Hydrochloride (Metformin Hcl Er), (Reported) Quetiapine Fumerate (Quetiapine Fumarate), 0.5 TAB PO, (Reported) Simvastatin (Simvastatin), 1 TAB PO, (Reported) Trazodone Hcl (Trazodone Hcl), 0.5 TAB PO, (Reported) Discharge Statement: "Patient was advised to return to the ER or call 911 if any headaches, dizziness, shortness of breath, chest pain, abdominal pain, bleeding, fevers, or worsening of medical condition. Patient was counseled about treatment plan, medications, possible side effects, patientverbalized understanding. All questions were answered to the best of my ability. This discharge took greater then 30 minutes in planning, reviewing documentation, counseling the patient, and discussing with other team members." Discharge Care Plan Instructions Take Rx medications, Notify MD of any issues, Keep list of meds w/ you, Call 911 in an emergency, F/U w/ PCP, Educate on timing of meds ASSESSMENT ASSESSMENT Assessment #Acute right hip and pelvic pain likely due to right pubic ramus fracture #Acute excruciating right hip and pelvic pain likely due to above #Acute mechanical fall causing right pelvic ramus fracture #Hypertensive heart disease with possible diastolic dysfunction #Type 2 diabetes mellitus, with hyperglycemia #Chronic Hyperlipidemia #Chronic Anxiety disorder Goals of care discussed with the patient for more than 30 minutes Code Status: Full code PCP: Dr. Rutherford Case discussed with Dr. Cormier Plan discussed with: Patient and Date of Service: Aug 13, 2025 Billing Provider: RODGER CORMIER MD Common Visit Codes: 49362-JOW/OBS DISCH DAY >30min ROBERTOBIN RESIDENT Aug 13, 2025 11:37
== END 2025-08-13 19:19 | disposition home health service (06) | DRG 536 ==
LOC: ER 07:55 → OVERFLOW 13:05 → WEST WING 23:04
PROVIDERS: ADMIT Internal Medicine; ATTEND Internal Medicine
DX: S32.591A Other specified fracture of right pubis, initial encounter for closed fracture (principal); E11.65 Type 2 diabetes mellitus with hyperglycemia; I10 Essential (primary) hypertension; F41.9 Anxiety disorder, unspecified; E78.5 Hyperlipidemia, unspecified; Z79.899 Other long term (current) drug therapy; Z79.82 Long term (current) use of aspirin; Z79.84 Long term (current) use of oral hypoglycemic drugs; W18.39XA Other fall on same level, initial encounter; Y93.89 Activity, other specified; Y92.89 Other specified places as the place of occurrence of the external cause; Y99.8 Other external cause status
CPT/HCPCS: 36415; 71045; 73502; 80048; 80061; 80307; 81001; 82306; 82607; 82962; 83036; 85025; 85610; 85730; 87086; 97116; 97163; 97530; G0378; J1815